=== PATIENT | male | born 1970 | race Caucasian/White ===

== ENCOUNTER 2019-03-14 20:54 | Emergency (ER) | payer OTHER ==
[2019-03-14] MEDS ORDERED: KETOROLAC 30 MG/ML INJ ONE (21:25)
[2019-03-14] MEDS ORDERED: HYDROCODONE/APAP 10/325 TAB ONE (21:25)
--- NOTE | 2019-03-14 21:46 | EDPHYS ---
Physician Documentation [facility] Name: Kevin Bronson Age: 48 yrs Sex: Male : 1970 Arrival Date: 03/14/2019 Time: 20:58 Bed 19 Private MD: ED Physician Lebron Perez HPI: 03/14 21:55 This 48 yrs old Male presents to ER via Ambulatory with complaints of Arm Injury. kb 21:55 The patient or guardian complains of decreased range of motion, injury, pain, that is kb acute, swelling, tenderness. The complaints affect the right upper arm. Context: The problem was sustained at home, resulted from lifting or pulling, a heavy object. Onset: The symptoms/episode began/occurred just prior to arrival. Treatment prior to arrival includes: no previous treatment. Modifying factors: The symptoms are alleviated by nothing. the symptoms are aggravated by movement. Associated signs and symptoms: Pertinent positives: decreased range of motion, pain, swelling. Severity of symptoms: At their worst the symptoms were moderate, in the emergency department the symptoms are unchanged. The patient has not recently seen a physician. Pt reports he was carrying a large rock and felt a pull and pain to right bicep. Reports pain, tenderness, swelling and decreased ROM . Historical: - Allergies: 21:22 No Known Allergies; ss - Home Meds: 21:22 Lisinopril Oral [Active]; unknown hypertensive medication [Active]; ss - PMHx: 21:22 Hypertension; ss - PSHx: 21:22 Cholecystectomy; knee repair; ss - Immunization history:: Adult Immunizations up to date. - Social history:: Smoking status: Patient/guardian denies using tobacco. - Ebola Screening: : Patient denies exposure to infectious person Patient denies travel to an Ebola-affected area in the 21 days before illness onset. ROS: 21:47 Constitutional: Negative for fever, chills, and weight loss, Cardiovascular: Negative kb for chest pain, palpitations, and edema, Respiratory: Negative for shortness of breath, cough, wheezing, and pleuritic chest pain, Abdomen/GI: Negative for abdominal pain, nausea, vomiting, diarrhea, and constipation. Exam: 21:53 Constitutional: This is a well developed, well nourished patient who is awake, alert, kb and in no acute distress. Head/Face: Normocephalic, atraumatic. Chest/axilla: Normal chest wall appearance and motion. Nontender with no deformity. No lesions are appreciated. Cardiovascular: Regular rate and rhythm with a normal S1 and S2. No gallops, murmurs, or rubs. Normal PMI, no JVD. No pulse deficits. Respiratory: Lungs have equal breath sounds bilaterally, clear to auscultation and percussion. No rales, rhonchi or wheezes noted. No increased work of breathing, no retractions or nasal flaring. Abdomen/GI: Soft, non-tender, with normal bowel sounds. No distension or tympany. No guarding or rebound. No evidence of tenderness throughout. Skin: Warm, dry with normal turgor. Normal color with no rashes, no lesions, and no evidence of cellulitis. Neuro: Awake and alert, GCS 15, oriented to person, place, time, and situation. Cranial nerves II-XII grossly intact. Motor strength 5/5 in all extremities. Sensory grossly intact. Cerebellar exam normal. Normal gait. 21:53 Musculoskeletal/extremity: Extremities: grossly normal except: noted in the right bicep: pain, swelling, tenderness, ROM: limited active range of motion, in the right upper arm, Circulation is intact in all extremities. Sensation intact. Vital Signs: 21:22 BP 154 / 100; Pulse 87; Resp 16; Temp 98.6; Pulse Ox 98% on R/A; Weight 104.33 kg; ss Height 5 ft. 6 in. (167.64 cm); Pain 5/10; 22:10 BP 149 / 97; Pulse 85; Resp 17 S; Pulse Ox 98% on R/A; cc3 21:22 Body Mass Index 37.12 (104.33 kg, 167.64 cm) ss MDM: 21:08 Patient medically screened. kb 21:54 Data reviewed: vital signs, nurses notes. Data interpreted: Pulse oximetry: on room air kb is 98 %. Interpretation: normal. Counseling: I had a detailed discussion with the patient and/or guardian regarding: the historical points, exam findings, and any diagnostic results supporting the discharge/admit diagnosis, radiology results, the need for outpatient follow up, a orthopedic surgeon, to return to the emergency department if symptoms worsen or persist or if there are any questions or concerns that arise at home. 03/14 21:48 Order name: Humerus Right XRAY kb 03/14 21:12 Order name: Sling; Complete Time: 21:33 kb Administered Medications: 21:25 Drug: [place] 10 mg-325 mg 1 tabs {Note: RASS 0.} Route: PO; cc3 22:00 Follow up: Response: No adverse reaction; Pain is decreased; RASS: Alert and Calm (0) cc3 21:30 Drug: TORadol 30 mg Route: IM; Site: left deltoid; cc3 22:00 Follow up: Response: No adverse reaction; Pain is decreased cc3 22:33 Drug: Flexeril 10 mg Route: PO; cc3 22:35 Follow up: Response: No adverse reaction cc3 Disposition: 03/15 02:24 Co-signature as Attending Physician, Lebron Perez MD. rn Disposition: 03/14/19 21:45 Discharged to Home. Impression: Strain of muscle, fascia and tendon of other parts of biceps, right arm. - Condition is Stable. - Discharge Instructions: Muscle Strain, [id number]. - Prescriptions for Tylenol- Codeine #3 300-30 mg Oral Tablet - take 2 tablets by ORAL route every 6 hours As needed; 20 tablet. Cyclobenzaprine 10 mg Oral Tablet - take 1 tablet by ORAL route every 8 hours As needed; 21 tablet. - Medication Reconciliation Form, Thank You Letter, Antibiotic Education, Prescription Opioid Use form. - Follow up: Emergency Department; When: As needed; Reason: Worsening of condition. Follow up: Private Physician; When: 2 - 3 days; Reason: Recheck today's complaints, Continuance of care, Re-evaluation by your physician. Signatures: Dispatcher [employer] [facility] Sada Anhtony, DIESEL DRAGLINE OPERATOR-C DIESEL DRAGLINE OPERATOR-Ckb Lebron Perez MD MD rn Smirch, Shelby, RN RN ss Cordel, Charlene cc3 Corrections: (The following items were deleted from the chart) 03/14 22:36 21:45 03/14/2019 21:45 Discharged to Home. Impression: Strain of muscle, fascia and cc3 tendon of other parts of biceps, right arm. Condition is Stable. Forms are Medication Reconciliation Form, Thank You Letter, Antibiotic Education, Prescription Opioid Use. Follow up: Emergency Department; When: As needed; Reason: Worsening of condition. Follow up: Private Physician; When: 2 - 3 days; Reason: Recheck today's complaints, Continuance of care, Re-evaluation by your physician. kb
--- NOTE | 2019-03-14 21:46 | ER ---
Nurse's Notes [facility] Name: Kevin Bronson Age: 48 yrs Sex: Male : 1970 Arrival Date: 03/14/2019 Time: 20:58 Bed 19 Private MD: Diagnosis: Strain of muscle, fascia and tendon of other parts of biceps, right arm Presentation: 03/14 21:18 Presenting complaint: Patient states: Patient reports R upper arm pain that began after ss throwing something and hearing a "Velcro ripping" sound. Transition of care: patient was not received from another setting of care. Onset of symptoms was March 14, 2019. Risk Assessment: Do you want to hurt yourself or someone else? Patient reports no desire to harm self or others. Initial Sepsis Screen: Does the patient meet any 2 criteria? No. Patient's initial sepsis screen is negative. Does the patient have a suspected source of infection? No. Patient's initial sepsis screen is negative. Care prior to arrival: None. 21:18 Method Of Arrival: Ambulatory ss 21:18 Acuity: AARON 4 ss Triage Assessment: 21:18 General: Appears in no apparent distress. uncomfortable, Behavior is calm, cooperative, cc3 appropriate for age. Pain: Complains of pain in right arm. Musculoskeletal: Circulation, motion, and sensation intact. Range of motion: limited in right arm. Injury Description: right arm injury. Historical: - Allergies: 21:22 No Known Allergies; ss - Home Meds: 21:22 Lisinopril Oral [Active]; unknown hypertensive medication [Active]; ss - PMHx: 21:22 Hypertension; ss - PSHx: 21:22 Cholecystectomy; knee repair; ss - Immunization history:: Adult Immunizations up to date. - Social history:: Smoking status: Patient/guardian denies using tobacco. - Ebola Screening: : Patient denies exposure to infectious person Patient denies travel to an Ebola-affected area in the 21 days before illness onset. Screenin:18 Abuse screen: Denies threats or abuse. Denies injuries from another. Nutritional cc3 screening: No deficits noted. Tuberculosis screening: No symptoms or risk factors identified. Fall Risk Ambulatory Aid- None/Bed Rest/Nurse Assist (0 pts). Gait- Normal/Bed Rest/Wheelchair (0 pts) Mental Status- Oriented to own ability (0 pts). Assessment: 21:18 General: Appears in no apparent distress. uncomfortable, Behavior is calm, cooperative, cc3 appropriate for age. Pain: Complains of pain in right arm. Neuro: Level of Consciousness is awake, alert, obeys commands, Oriented to person, place, time, situation, Appropriate for age. Cardiovascular: Denies chest pain, Capillary refill < 3 seconds Patient's skin is warm and dry. Respiratory: Airway is patent Respiratory effort is even, unlabored, Respiratory pattern is regular, symmetrical. GI: Abdomen is round. : No signs and/or symptoms were reported regarding the genitourinary system. EENT: No signs and/or symptoms were reported regarding the EENT system. Derm: Skin is intact, is healthy with good turgor, Skin is pink, warm \\T\\ dry. normal. Musculoskeletal: Circulation, motion, and sensation intact. Range of motion: limited in right arm. 22:30 Reassessment: Patient appears in no apparent distress at this time. Patient and/or cc3 family updated on plan of care and expected duration. Pain level reassessed. Patient is alert, oriented x 3, equal unlabored respirations, skin warm/dry/pink. WIND ENERGY PROJECT MANAGER Raj discharged the patient home with prescription given. No IV cannula in situ. Patient left ER vitally stable and ambulatory with right arm sling. No valuables left in the patient's room. Patient denies pain at this time. Patient states feeling better. Patient states symptoms have improved. Vital Signs: 21:22 BP 154 / 100; Pulse 87; Resp 16; Temp 98.6; Pulse Ox 98% on R/A; Weight 104.33 kg; ss Height 5 ft. 6 in. (167.64 cm); Pain 5/10; 22:10 BP 149 / 97; Pulse 85; Resp 17 S; Pulse Ox 98% on R/A; cc3 21:22 Body Mass Index 37.12 (104.33 kg, 167.64 cm) ED Course: 20:58 Patient arrived in ED. ag3 21:08 Sada [facility] F[facility]-C [facility]. kb 21:08 Lebron Perez MD is Attending Physician. kb 21:18 Tere Palma is Primary Nurse. cc3 21:18 Patient has correct armband on for positive identification. Bed in low position. Call cc3 light in reach. Side rails up X 1. Pulse ox on. NIBP on. 21:20 Triage completed. ss 21:22 Arm band placed on right wrist. ss 21:32 Sling applied to right arm. jp3 22:30 No provider procedures requiring assistance completed. Patient did not have IV access cc3 during this emergency room visit. 22:35 Humerus Right XRAY In Process Unspecified. EDMS Administered Medications: 21:25 Drug: [place] 10 mg-325 mg 1 tabs {Note: RASS 0.} Route: PO; cc3 22:00 Follow up: Response: No adverse reaction; Pain is decreased; RASS: Alert and Calm (0) cc3 21:30 Drug: TORadol 30 mg Route: IM; Site: left deltoid; cc3 22:00 Follow up: Response: No adverse reaction; Pain is decreased cc3 22:33 Drug: Flexeril 10 mg Route: PO; cc3 22:35 Follow up: Response: No adverse reaction cc3 Outcome: 21:45 Discharge ordered by . kb 22:30 Discharged to home ambulatory, with family. cc3 22:30 Condition: stable 22:30 Discharge instructions given to patient, Instructed on discharge instructions, follow up and referral plans. medication usage, Demonstrated understanding of instructions, follow-up care, medications, Prescriptions given X 2. 22:36 Patient left the ED. cc3 Signatures: Dispatcher [employer] ED[facility] Sada Anthony, Samaria Norris RN RN Eligio Smiley jp3 Tere Palma cc3 Oma Dorantes 3
[2019-03-14] MEDS ORDERED: CYCLOBENZAPRINE 10 MG TAB ONE (22:33)
--- NOTE | 2019-03-14 22:47 | RAD REPORT ---
EXAM DESCRIPTION: RAD - Humerus Right - 03/14/2019 10:35 pm CLINICAL HISTORY: Right arm pain FINDINGS: No fracture is seen involving the humerus. No bony lesion There may be an old distal right clavicular fracture which is incompletely evaluated on this exam
== END 2019-03-14 22:36 | disposition home or self-care (01) ==
LOC: ER 20:54
DX: S46.211A Strain of muscle, fascia and tendon of other parts of biceps, right arm, initial encounter (principal); X50.0XXA Overexertion from strenuous movement or load, initial encounter; I10 Essential (primary) hypertension
CPT/HCPCS: 96372; 99284

== ENCOUNTER 2020-04-09 15:29 | Emergency (ER) | payer BC, OTHER ==
--- OUTSIDE RECORDS SUMMARY | 2020-04-09 15:31 | XMS REPORT | Continuity of Care Document ---
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) Hypertensive Active 08/08/19 Problem 03/29/2019 [facility] disorder, 04 systemic arterial (disorder) Rupture of Active Problem 03/29/2019 [facility] tendon of biceps (disorder) Medications Medication Details Route Status Patient Ordering Order Source Instructions Provider Date Ofirmev Notes: Max 4gm Inactive 03/27/ [facility] acetaminophen 2019 in 24 hours Promethazine 12.5 mg = 0.5 Inactive 03/27/ [facility] mL, Injection, 2019 IM, Once PRN for vomiting, first dose 03/27/19 16:04:00 CDT Ondansetron 4 mg = 2 mL, Inactive 03/27/ [facility] Injection, IV 2019 Push, q15min PRN for nausea, order duration: 2 doses, first dose 03/27/19 16:04:00 CDT, stop date Limited # of times Diphenhydramine 25 mg = 0.5 Inactive 03/27/ [facility] mL, Injection, 2018 IV Push, Once PRN for itching, first dose 03/27/19 16:04:00 CDT Bupivacaine 0.25% 300 300 mL, Nerve Inactive / [facility] mL pump 300 mL Block, 5 2019 mL/hr, start date 03/27/19 16:04:00 CDT Demerol HCl 12.5 mg = 0.5 Inactive 03/27/ [facility] mL, Injection, 2018 IV Push, Once PRN for shivers, first dose 03/27/19 16:04:00 CDT Dilaudid 0.5 mg = 0.5 Inactive 03/27/ [facility] mL, Injection, 2019 IV Push, q10min PRN for pain severe (7-10), first dose 03/27/19 16:04:00 CDT Albuterol 0.83 MG/ML 2.5 mg = 3 mL, Inactive [facility] Inhalant Solution Soln, NEB, 2019 Once PRN for wheezing, first dose 03/27/19 16:04:00 CDT Morphine 2 mg = 0.2 mL, Inactive 03/27/ [facility] Injection, IV 2019 Push, q5min PRN for pain, first dose 03/27/19 16:04:00 CDT LR 1,000 mL 1,000 mL, IV, Inactive 03/27/ [facility] 75 mL/hr, 2019 start date 03/27/19 16:04:00 CDT Saline Lock Flush 10 mL, Soln, Inactive [facility] IV Push, As 2019 Indicated PRN for flush, first dose 03/27/19 16:04:00 CDT Misc Medication 500 mL, Inactive [facility] Soln-IV, IV, 2019 Once, first dose 03/27/19 16:00:00 CDT, stop date 03/27/19 16:00:00 CDT ePHEDrine 10 mg = 0.2 Inactive [facility] mL, Injection, 2019 IV, Once, first dose 03/27/19 15:31:00 CDT, stop date 03/27/19 15:31:00 CDT Misc Medication 1,000 mL, Inactive [facility] Soln-IV, IV, 2019 Once, first dose 03/27/19 15:10:00 CDT, stop date 03/27/19 15:10:00 CDT ketorolac 30 mg = 1 mL, Inactive 03/27/ [facility] Injection, IV, 2018 Once, first dose 03/27/19 15:10:00 CDT, stop date 03/27/19 15:10:00 CDT fentaNYL 50 mcg = 1 mL, Inactive 03/27/ [facility] Injection, IV, 2019 Once, first dose 03/27/19 15:05:00 CDT, stop date 03/27/19 15:05:00 CDT ePHEDrine 10 mg = 0.2 Inactive 03/27/ [facility] mL, Injection, 2019 IV, Once, first dose 03/27/19 15:00:00 CDT, stop date 03/27/19 15:00:00 CDT fentaNYL 50 mcg = 1 mL, Inactive [facility] Injection, IV, 2019 Once, first dose 03/27/19 14:42:00 CDT, stop date 03/27/19 14:42:00 CDT fentaNYL 100 mcg = 2 Inactive 03/27/ [facility] mL, Injection, 2019 IV, Once, first dose 03/27/19 14:15:00 CDT, stop date 03/27/19 14:15:00 CDT ceFAZolin 2 gm, Inactive [facility] Powder-Inj, 2019 IV, Once, first dose 03/27/19 14:07:00 CDT, stop date 03/27/19 14:07:00 CDT dexamethasone 8 mg = 2 mL, Inactive [facility] Injection, IV, 2019 Once, first dose 03/27/19 14:06:00 CDT, stop date 03/27/19 14:06:00 CDT ondansetron 4 mg = 2 mL, Inactive [facility] Injection, IV, 2019 Once, first dose 03/27/19 14:06:00 CDT, stop date 03/27/19 14:06:00 CDT midazolam 2 mg = 2 mL, Inactive [facility] Injection, IV, 2019 Once, first dose 03/27/19 14:00:00 CDT, stop date 03/27/19 14:00:00 CDT fentaNYL 100 mcg = 2 Inactive [facility] mL, Injection, 2019 IV, Once, first dose 03/27/19 14:00:00 CDT, stop date 03/27/19 14:00:00 CDT lidocaine 80 mg = 4 mL, Inactive [facility] Injection, IV, 2019 Once, first dose 03/27/19 14:00:00 CDT, stop date 03/27/19 14:00:00 CDT propofol 150 mg = 15 Inactive [facility] mL, Emulsion, 2019 IV, Once, first dose 03/27/19 14:00:00 CDT, stop date 03/27/19 14:00:00 CDT Cefazolin 2 gm, IV Inactive [facility] Piggyback, 2019 Once, infuse over 30 minutes, first dose 03/27/19 10:00:00 CDT, stop date 03/27/19 10:00:00 CDT, patient weight 50-120 kg, Prophylaxis Lidocaine 2% 0.2 mL 0.2 mL, Inactive [facility] IV Start [[facility]] Injection, 2019 Subcutaneous, Once PRN for other (see comment), first dose 03/27/19 9:34:00 CDT LR 1,000 mL 1,000 mL, IV, Inactive [facility] 30 mL/hr, 2019 start date 03/27/19 9:34:00 CDT cyclobenzaprine Oral, BID, PRN Active [facility] muscle pain, 0 2019 Refill(s) Hydrochlorothiazide 1 tabs, Oral, Active [facility] 25 MG / Losartan Daily, 0 2019 Potassium 100 MG Oral Refill(s), HTN Tablet amLODIPine 10 mg oral 10 mg = 1 Active [facility] tablet tabs, Oral, 2019 Daily, 0 Refill(s), HTN Allergies, Adverse Reactions, Alerts No Known Medication Allergies Immunizations No Data Provided for This Section Results No Data Provided for This Section Pathology Reports No Data Provided for This Section Diagnostic Reports No Data Provided for This Section Consultation Notes No Data Provided for This Section Discharge Summaries No Data Provided for This Section History and Physicals No Data Provided for This Section Vital Signs Vital Sign Value Date Comments Source Respitory Rate 14 03/27/2019 [facility] Systolic (mm Hg) 104 03/27/2019 [facility] Diastolic (mm Hg) 62 03/27/2019 [facility] Peripheral Pulse Rate 81 03/27/2019 [facility] Respitory Rate 14 03/27/2019 [facility] Systolic (mm Hg) 104 03/27/2019 [facility] Diastolic (mm Hg) 61 03/27/2019 [facility] Heart Rate 95 03/27/2019 [facility] Heart Rate 94 03/27/2019 [facility] Respitory Rate 12 03/27/2019 [facility] Systolic (mm Hg) 96 03/27/2019 [facility] Diastolic (mm Hg) 56 03/27/2019 [facility] Heart Rate 95 03/27/2019 [facility] Temperature Oral (F) 37.0 [place] 03/27/2019 [facility] Weight Measured 104 03/27/2019 [facility] Height 167.64 cm 03/27/2019 [facility] Peripheral Pulse Rate 83 03/27/2019 [facility] Temperature Oral (F) 37 [place] 03/27/2019 [facility] Weight Measured 104.32 03/23/2019 [facility] Peripheral Pulse Rate 85 03/23/2019 [facility] Height 167.64 cm 03/23/2019 [facility] Encounters Location Location Encounter Encounter Reason Attending ADM DC Stat us Source Details Type Number For Provider Date Date Visit [facility] Outpatient [id number] Jaden 03/27 03/27 Active [facility] Outpatient [id number] Jaden 03/27 03/27 [facility] Procedures Procedure Code Date Perfomer Comments Source REINSERTION RUPTURED 03/27/2019 auto-populated [facility] BICEPS/TRICEPS from documented TENDON-DISTAL W/ OR surgical case W/O GRAFT [id number] (Right)<sup>1</sup&gt ; plantar fasciotomy 08/08/2015 [facility] Arthroscopy of knee [id number] 08/08/2013 [facility] Cholecystectomy [id number] 08/08/2007 [facility] prostate every 6 months [facility] BX<sup>2</sup> Assessment and Plan No Data Provided for This Section Plan of Care No Data Provided for This Section Social History Social History Date Source Social History TypeResponse 03/23/2019 [facility] Smoking Status Never (less than 100 in lifetime); Never entered on: 03/23/19 Family History No Data Provided for This Section Advance Directives No Data Provided for This Section Functional Status No Data Provided for This Section
--- OUTSIDE RECORDS SUMMARY | 2020-04-09 15:31 | XMS REPORT | Continuity of Care Document ---
:1970 Author Organization [facility] t Address [address] [place] [address] Care Team Providers Name Role Phone ROBYN MARQUIS M.D. Attending Clinician Unavailable Robyn Marquis Attending Clinician Robyn Marquis Admitting Clinician Problems Condition Condition Condition Status Onset Resolution Last Treating Co mments Source Name Details Category Date Date Treatment Clinician Date Carcinoma Problem Active 2019-03-29 Me moria of 08-08 04:01:26 l prostate 00:00: Edwin (disorder) Carcinoma 00 of prostate (disorder) Active 08/08/2015 Problem 03/29/2019 active surveillan ce [facility] Hypertensi Problem Active 2003-2019-03-29 M emoria ve 08-08 04:01:26 l disorder, 00:00: Edwin systemic Hypertensi 00 arterial ve (disorder) disorder, systemic arterial (disorder) Active 08/08/2003 Problem 03/29/2019 [facility] Hyperlipid Hyperlipid Diagnosis [facility] Low Low Diagnosis Active [facility] testostero testostero [facility] - ne in male ne in male Me [facility]ia [facility] Benign Benign Problem Active [facility] - HTN HTN [facility] Depression Depression Diagnosis [facility] Prostate Prostate Diagnosis Active [facility] cancer [facility] Decreased Decreased Diagnosis Active [facility] libido libido [facility] Fatigue, Fatigue, Diagnosis Active [facility] unspecifie unspecifie [facility] - d type d type [facility] Gastro-eso Gastro-eso Diagnosis Active [facility] - reflux reflux Memoria disease disease l without without Outpati esophagiti esophagiti en t s s Clinics Hypersomni Hypersomni Diagnosis Active [facility] Rupture of Rupture of Problem Active [facility] distal distal ity of biceps biceps [place] tendon, tendon, Physici right, right, ans initial initial encounter encounter Right Right Problem Active [facility] elbow pain elbow pain it y of [place] [facility] ans Rupture of Problem Active 2019-03-29 M emoria tendon of 04:01:26 l biceps Rupture Edwin (disorder) of tendon of biceps (disorder) Active Problem 03/29/2019 [facility] Allergies, Adverse Reactions, Alerts This patient has no known allergies or adverse reactions. Social History Smoking Status Start Date Stop Date Source Social History [facility] Medications Ordered Filled Start Stop Current Ordering Indication Dosage Frequency Signature Comments Components Source Medication Medication Date Date Medication? Clinician (SIG) Name Name [facility] No Notes: Max Nico mike 8-20 4gm l 23:00: acetaminop Edwin 00 hen in 24 hours Promethazin 2018- No 12.5 mg = M emoria e 8-20 0.5 mL, l 21:04: Injection, Edwin 00 IM, Once PRN for vomiting, first dose 03/27/19 16:04:00 CDT Ondansetron 2018- No 4 mg = 2 Me moria 8-20 mL, l 21:04: Injection, Edwin 00 IV Push, q15min PRN for nausea, order duration: 2 doses, first dose 03/27/19 16:04:00 CDT, stop date Limited # of times Diphenhydra 2018-0 No 25 mg = Mem oria mine 8-20 0.5 mL, l 21:04: Injection, Edwin 00 IV Push, Once PRN for itching, first dose 03/27/19 16:04:00 CDT Bupivacaine 2018-0 No 300 mL, Mem oria 0.25% 300 8-20 Nerve l mL pump 300 21:04: Block, 5 He rmann mL 00 mL/hr, start date 03/27/19 16:04:00 CDT Demerol HCl 2018- No 12.5 mg = M emoria 8-20 0.5 mL, l 21:04: Injection, Argenta 00 IV Push, Once PRN for shivers, first dose 03/27/19 16:04:00 CDT Dilaudid 2019-0 No 0.5 mg = Memor ia 8-20 0.5 mL, l 21:04: Injection, IV Push, q10min PRN for pain severe (7-10), first dose 03/27/19 16:04:00 CDT Albuterol 2018-0 No 2.5 mg = 3 Me moria 0.83 MG/ML 8-20 mL, Soln, l Inhalant 21:04: NEB, Once Herm PRN for wheezing, first dose 03/27/19 16:04:00 CDT Morphine 2019-0 No 2 mg = 0.2 Mem oria 8-20 mL, l 21:04: Injection, IV Push, q5min PRN for pain, first dose 03/27/19 16:04:00 CDT LR 1,000 mL 2019-0 No 1,000 mL, M emoria 8-20 IV, 75 l 21:04: mL/hr, start date 03/27/19 16:04:00 CDT Saline Lock 2019-0 No 10 mL, Nico mike Flush 8-20 Soln, IV l 21:04: Push, As Indicated PRN for flush, first dose 03/27/19 16:04:00 CDT Misc 2019-0 No 500 mL, Memoria Medication 8-20 Soln-IV, l 21:00: IV, Once, first dose 03/27/19 16:00:00 CDT, stop date 03/27/19 16:00:00 CDT ePHEDrine 2018-0 No 10 mg = Memor ia 8-20 0.2 mL, l 20:31: Injection, IV, Once, first dose 03/27/19 15:31:00 CDT, stop date 03/27/19 15:31:00 CDT Misc 2018-0 No 1,000 mL, Memoria Medication 8-20 Soln-IV, l 20:10: IV, Once, first dose 03/27/19 15:10:00 CDT, stop date 03/27/19 15:10:00 CDT ketorolac 2019-0 No 30 mg = 1 Mem oria 8-20 mL, l 20:10: Injection, Edwin 00 IV, Once, first dose 03/27/19 15:10:00 CDT, stop date 03/27/19 15:10:00 CDT fentaNYL 2019-0 No 50 mcg = 1 Mem oria 8-20 mL, l 20:05: Injection, Argenta 00 IV, Once, first dose 03/27/19 15:05:00 CDT, stop date 03/27/19 15:05:00 CDT ePHEDrine 2019-0 No 10 mg = Memor ia 8-20 0.2 mL, l 20:00: Injection, Argenta 00 IV, Once, first dose 03/27/19 15:00:00 CDT, stop date 03/27/19 15:00:00 CDT fentaNYL 2019-0 No 50 mcg = 1 Mem oria 8-20 mL, l 19:42: Injection, Argenta 00 IV, Once, first dose 03/27/19 14:42:00 CDT, stop date 03/27/19 14:42:00 CDT fentaNYL 2019-0 No 100 mcg = Nico mike 8-20 2 mL, l 19:15: Injection, Edwin 00 IV, Once, first dose 03/27/19 14:15:00 CDT, stop date 03/27/19 14:15:00 CDT ceFAZolin 2019-0 No 2 gm, Memoria 8-20 Powder-Inj l 19:07: , IV, Argenta 00 Once, first dose 03/27/19 14:07:00 CDT, stop date 03/27/19 14:07:00 CDT dexamethaso 2019-0 No 8 mg = 2 Me moria ne 8-20 mL, l 19:06: Injection, Edwin 00 IV, Once, first dose 03/27/19 14:06:00 CDT, stop date 03/27/19 14:06:00 CDT ondansetron 2019-0 No 4 mg = 2 Me moria 8-20 mL, l 19:06: Injection, Argenta 00 IV, Once, first dose 03/27/19 14:06:00 CDT, stop date 03/27/19 14:06:00 CDT midazolam 2019-0 No 2 mg = 2 Nico mike 8-20 mL, l 19:00: Injection, Edwin 00 IV, Once, first dose 03/27/19 14:00:00 CDT, stop date 03/27/19 14:00:00 CDT fentaNYL 2019-0 No 100 mcg = Nico mike 8-20 2 mL, l 19:00: Injection, Argenta 00 IV, Once, first dose 03/27/19 14:00:00 CDT, stop date 03/27/19 14:00:00 CDT lidocaine 2019-0 No 80 mg = 4 Mem oria 8-20 mL, l 19:00: Injection, Edwin 00 IV, Once, first dose 03/27/19 14:00:00 CDT, stop date 03/27/19 14:00:00 CDT propofol 2019-0 No 150 mg = Memor ia 8-20 15 mL, l 19:00: Emulsion, Edwin 00 IV, Once, first dose 03/27/19 14:00:00 CDT, stop date 03/27/19 14:00:00 CDT Cefazolin 2019-0 No 2 gm, IV Nico mike 8-20 Piggyback, l 15:00: Once, infuse over 30 minutes, first dose 03/27/19 10:00:00 CDT, stop date 03/27/19 10:00:00 CDT, patient weight 50-120 kg, Prophylaxi s Lidocaine 2019-0 No 0.2 mL, Memor ia 2% 0.2 mL 8-20 Injection, l IV Start 14:34: Subcutaneo Her [facility] 00 us, Once PRN for other (see comment), first dose 03/27/19 9:34:00 CDT LR 1,000 mL 2019-0 No 1,000 mL, M emoria 8-20 IV, 30 l 14:34: mL/hr, start date 03/27/19 9:34:00 CDT cyclobenzap 2019-0 Yes Oral, BID, Memoria rine 8-16 PRN muscle l 16:35: pain, 0 Argenta 00 Refill(s) Hydrochloro 2019-0 Yes 1 tabs, Mem oria thiazide 25 8-16 Oral, l MG / 16:34: Daily, 0 Edwin Losartan 00 Refill(s), Potassium HTN 100 MG Oral Tablet amLODIPine Yes 10 mg = 1 Me moria 10 mg oral 8-16 tabs, l tablet 16:34: Oral, Argenta 00 Daily, 0 Refill(s), HTN Acetaminoph Acetaminoph Yes ROBYN TAKE 1 TO [facility] en-Codeine en-Codeine 809 MARQUIS M.D. 2 TABLETS ity of #3 300-30 #3 300-30 00:00: EVERY 5 TO [place] MG Oral MG Oral 00 6 HOURS Phy sici Tablet Tablet NEEDED FOR ans PAIN. Ezetimibe Ezetimibe Yes Dat [address] [facility] Simvastatin Simvastatin Yes Dat [address] [facility] evening [facility] Lipitor Lipitor Yes Dat [address] [facility] Zestoretic Zestoretic Yes Dat [address] [facility] Vital Signs Vital Name Observation Time Observation Value Comments Source Respitory Rate 2019-03-27 23:01:00 Memori al Edwin Systolic (mm Hg) 2019-03-27 23:01:00 Nico rial Edwin Diastolic (mm Hg) 2019-03-27 23:01:00 Mem orial Argent[place] Respitory Rate 2019-03-27 22:40:00 Memori al Edwin Systolic (mm Hg) 2019-03-27 22:40:00 Nico rial [place] Diastolic (mm Hg) 2019-03-27 22:40:00 Mem orial [place] Heart Rate 2019-03-27 22:40:00 [facility] [place] Heart Rate 2019-03-27 22:30:00 [facility] [place] Respitory Rate 2019-03-27 22:30:00 Memori al [place] Systolic (mm Hg) 2019-03-27 22:30:00 Nico rial Edwin Diastolic (mm Hg) 2019-03-27 22:30:00 Mem orial Edwin Heart Rate 2019-03-27 22:20:00 [facility] [place] Temperature Oral (F) 2019-03-27 20:50:00 37.0 [facility] Height 2019-03-27 14:43:00 167.64 cm [facility] Temperature Oral (F) 2019-03-27 14:43:00 37 Armida [facility] Height 2019-03-23 16:33:00 167.64 cm [facility] BP Systolic 2019-03-16 08:04:00 157 mm[Hg] [facility] Physician s BP Diastolic 2019-03-16 08:04:00 94 mm[Hg] [facility] Physician s Height 2019-03-16 08:04:00 66 [in_us] [facility] [place] [facility] Weight 2019-03-16 08:04:00 230 [lb_av] [facility] Physician s Body Mass Index 2019-03-16 08:04:00 37.12 kg/m2 [facility] Physician s Heart Rate 2019-03-16 08:04:00 76 /min [facility] Physician s Procedures Procedure Date / Time Performing Clinician Source Performed Post Op Promis 29 Survey 2019-04-13 00:00:00 [facility] REINSERTION RUPTURED 2019-03-27 19:17:00 Rebecca Pineda BICEPS/TRICEPS TENDON-DISTAL W/ OR W/O GRAFT [id number] (Right)<sup>1</sup> [UTP] Ortho - Surgery 2019-03-16 00:00:00 [facility] Scheduling Physicians plantar fasciotomy 2015-08-08 00:00:00 [facility] Cholecystectomy 2007-08-08 00:00:00 [facility] Her alcaraz History of [facility]adder [facility] surgery Physicians History of Knee [facility] arthroscopy Physicians History of Elbow Surgery [facility] Physicians prostate BX<sup>2</sup> [facility] Plan of Care Planned Activity Planned Date Details Comments Source Diagnostic Test 2019-03-16 [UTP] Ortho - [facility] Pending 00:00:00 Surgery Scheduling Physician s [code = [UTP] Ortho - Surgery Scheduling] Encounters Start End Encounter Admission Attending Care Care Encounter Source Date/Time Date/Time Type Type Clinicians Facility Department ID 2019-07-24 2019-07-24 Appointmen RONNI MARQUIS Orthopedics [id number] [facility] 14:00:00 14:00:00 t; ROBYN MARQUIS, - Yvonne June M.D. [address]D. Physic ans 2019-05-09 2019-05-09 Appointmen [facility] Orthopedics [id number] [facility] 13:45:00 13:45:00 t; ROBYN MARQUIS, - [facility] [place] 1 aKtie Tellez Physic ans 2019-04-04 2019-04-04 Appointmen [facility] Orthopedics [id number] Univers 15:00:00 15:00:00 t; ROBYN MARQUIS, - [place] [facility] [place] [address] [facility] 2019-03-27 2019-03-27 Outpatient Kandis [id number] 09:19:02 18:30:00 Robyn Mak 2019-03-27 [facility] Orthopedics [id number] [facility] 16:00:00 16:00:00 t; ROBYN MARQUIS, - [facility] [place] [address] [facility] 2019-03-16 2019-03-[id number] Univers 08:00:00 08:00:00 t; ROBYN MARQUIS, - [place] [facility] [place] [address] [facility] 2017-11-28 2017-11-28 [facility] [id number] 08:15:00 08:15:00 t Z2 [facility] Outpati ent Clinics 2017-11-03 2017-11-03 [facility] [id number] 16:07:00 16:07:00 t Z2 [facility] Medicine Outpati ent Clinics 2017-10-26 2017-10-26 [facility] [id number] 08:30:00 08:30:00 t Z2 [facility] Medicine Outpati ent Clinics Results This patient has no known results.
[2020-04-09 17:14] LABS: Absolute Lymphocytes (CBC) 1.2 K/uL (0.7-4.9); Basophils % 0.5 % (0-1.3); Hematocrit 45.6 % (39.6-49.0); Lymphocytes % 10.2 % (15.3-44.8); MPV 7.3 fL (7.6-11.3); RBC Red Blood Cell Count 5.06 M/uL (4.33-5.43)
[2020-04-09] MEDS ORDERED: FENTANYL CITR 100 MCG/2 ML ONE (17:18)
[2020-04-09] MEDS ORDERED: NA CHLORIDE 0.9% 500 ML ONE (17:18)
[2020-04-09] MEDS ORDERED: ONDANSETRON 4 MG/2 ML VIAL ONE (17:18)
--- NOTE | 2020-04-09 17:26 | RAD REPORT ---
EXAM DESCRIPTION: CT - Stone Protocol - 04/09/2020 5:12 pm CLINICAL HISTORY: Abdominal pain. COMPARISON: None. TECHNIQUE: Computed axial tomography of the abdomen pelvis was obtained without oral or IV contrast. Lack of IV and oral contrast limits evaluation of solid organs, bowel, and vessels. Coronal reformat eusebia images were obtained and reviewed. All CT scans are performed using dose optimization technique as appropriate and may include automated exposure control or mA/KV adjustment according to patient size. FINDINGS: 1 millimeter right renal calculus. Mild right hydronephrosis. 4.7 centimeter low-density m ass nonspecific without IV contrast but probably cyst. A left renal calculus is not seen. A ureteral calculus is not visualized. A 1 millimeter calculus is present within the posterior bladder to the right of midline. Fatty liver Cholecystectomy. Small bilateral inguinal hernias contain fat. Small umbilical hernia Spleen, pancreas and adrenals appear grossly normal There is no evidence of diverticulitis. The appendix appears normal IMPRESSION: 1 millimeter calculus within the bladder probably has recently passed from the right ure ter. Mild right hydronephrosis
[2020-04-09 17:34] LABS: ALT/SGPT 38 U/L (12-78); AST/SGOT 28 U/L (15-37); Alkaline Phosphatase 92 U/L (45-117); BUN Blood Urea Nitrogen 20 mg/dL (7-18); Bicarbonate 26 mmol/L (21-32); Bilirubin Direct < 0.1 mg/dL (0-0.2); Bilirubin Total 0.4 mg/dL (0.2-1.0); Glucose Level 117 mg/dL (74-106); Lipase 52 U/L (73-393); Protein, Total 7.9 g/dL (6.4-8.2); Sodium Level 142 mmol/L (136-145)
[2020-04-09] MEDS ORDERED: KETOROLAC 30 MG/ML INJ ONE (17:58)
--- NOTE | 2020-04-09 18:27 | ER ---
Nurse's Notes [facility] Name: Keivn Bronson Age: 49 yrs Sex: Male : 1970 Arrival Date: 04/09/2020 Time: 15:30 Bed 2 Private MD: Diagnosis: Right Renal Calculus (1 mm) w/ mild bydronephrosis Presentation: 04/09 15:47 Chief complaint: Patient states: Right flank pain for 2 hours with N/V. Unable to ll1 urinate at this time. Coronavirus screen: Client denies travel out of the [place] in the last 14 days. At this time, the client does not indicate any symptoms associated with coronavirus-19. Ebola Screen: Patient denies travel to an Ebola-affected area in the 21 days before illness onset. Initial Sepsis Screen: Does the patient meet any 2 criteria? No. Patient's initial sepsis screen is negative. Risk Assessment: Do you want to hurt yourself or someone else? Patient reports no desire to harm self or others. Onset of symptoms was April 09, 2020. 15:47 Method Of Arrival: Ambulatory ll1 15:47 Acuity: AARON 3 ll1 17:27 Initial Sepsis Screen: Does the patient have a suspected source of infection? No. sv Patient's initial sepsis screen is negative. Historical: - Allergies: 15:49 No Known Allergies; ll1 - PMHx: 15:49 Hypertension; ll1 - PSHx: 15:49 Cholecystectomy; ll1 - Immunization history:: Adult Immunizations up to date. - Social history:: Smoking status: Patient denies any tobacco usage or history of. Patient/guardian denies using alcohol, street drugs. Screenin:56 Abuse screen: Denies threats or abuse. Denies injuries from another. Nutritional sv screening: No deficits noted. Tuberculosis screening: No symptoms or risk factors identified. Fall Risk None identified. Assessment: 17:00 General: Appears in no apparent distress. uncomfortable, obese, well developed, sv Behavior is cooperative, appropriate for age, restless. Pain: Complains of pain in right mid back Pain currently is 10 out of 10 on a pain scale. Neuro: Level of Consciousness is awake, alert, obeys commands, Oriented to person, place, time, situation, Moves all extremities. Full function Gait is steady. Respiratory: Respiratory effort is even, unlabored, Respiratory pattern is regular, symmetrical. : Reports inability to void. Derm: Skin is pink, warm \T\ dry. 17:50 Reassessment: Patient appears in no apparent distress at this time. Patient and/or sv family updated on plan of care and expected duration. Pain level reassessed. Patient is alert, oriented x 3, equal unlabored respirations, skin warm/dry/pink. Patient states symptoms have improved. 18:44 Reassessment: Patient appears in no apparent distress at this time. Patient and/or sv family updated on plan of care and expected duration. Pain level reassessed. Patient is alert, oriented x 3, equal unlabored respirations, skin warm/dry/pink. Patient denies pain at this time. Patient states feeling better. Patient states symptoms have improved. Vital Signs: 15:47 BP 159 / 101; Pulse 82; Resp 20; Temp 98.1; Pulse Ox 99% ; Pain 10/10; ll1 17:27 BP 163 / 97; Pulse 94; Resp 22; Pulse Ox 97% ; sv 17:53 Pain 6/10; sv 18:32 BP 133 / 96; Pulse 92; Resp 18; Pulse Ox 96% ; sv ED Course: 15:30 Patient arrived in ED. ds1 15:48 Triage completed. ll1 15:50 Arm band placed on. ll1 16:11 Jaya Moeller MD is Attending Physician. kdr 16:56 Prisca Hawley, BETY is Primary Nurse. sv 16:56 Patient has correct armband on for positive identification. Bed in low position. Call sv light in reach. Door closed. Head of bed elevated. 17:00 Inserted saline lock: 22 gauge in left hand, using aseptic technique. Blood collected. sv Flushed left hand with 5 ml normal saline. 17:11 CT Stone Protocol In Process Unspecified. EDMS 18:44 No provider procedures requiring assistance completed. IV discontinued, intact, sv bleeding controlled, No redness/swelling at site. Pressure dressing applied. Administered Medications: 17:19 Drug: fentaNYL (PF) 50 mcg {Note: rass3.} Route: IVP; Site: left hand; sv 17:53 Follow up: Pain 6/10 Adult; Response: No adverse reaction; Marked relief of symptoms; sv Pain is decreased; RASS: Restless (+1) 17:19 Drug: Zofran (Ondansetron) 4 mg Route: IVP; Site: left hand; sv 17:53 Follow up: Response: No adverse reaction sv 17:19 Drug: NS 0.9% 500 ml Route: IV; Rate: bolus; Site: left hand; sv 18:46 Follow up: Response: No adverse reaction; IV Status: Completed infusion; IV Intake: sv 500ml 17:50 Drug: TORadol - Ketorolac 15 mg Route: IVP; Site: left hand; sv 18:46 Follow up: Response: No adverse reaction sv Intake: 18:46 IV: 500ml; Total: 500ml. sv Outcome: 18:27 Discharge ordered by . kdr 18:44 Discharged to home ambulatory. sv 18:44 Condition: stable 18:44 Discharge instructions given to patient, Instructed on discharge instructions, follow up and referral plans. no drinking with medication, no driving heavy equipment, medication usage, increase oral fluids Demonstrated understanding of instructions, follow-up care, medications, Prescriptions given X 4. 18:45 Patient left the ED. sv Signatures: Dispatcher [employer] Prisca Alcaraz, RN RN sv Jaya Moeller MD MD kdr Sanford, Maryse ds1 Daniela Mueller RN RN ll1 Corrections: (The following items were deleted from the chart) 16:26 15:48 Arm band placed on Patient placed in an exam room, on a stretcher, ll1 ll1
--- NOTE | 2020-04-09 18:27 | EDPHYS ---
Physician Documentation [facility] Name: Kevin Bronson Age: 49 yrs Sex: Male : 1970 Arrival Date: 04/09/2020 Time: 15:30 Bed 2 Private MD: ED Physician Jaya Moeller HPI: 04/09 17:00 This 49 yrs old Male presents to ER via Ambulatory with complaints of Back kdr Pain. 17:00 The patient presents with pain that is acute. The symptoms are located in the low back, kdr Right CVA. Onset: The symptoms/episode began/occurred suddenly, 2 hour(s) ago. To RLQ and abdomen. The problem was sustained from unknown cause. Modifying factors: The patient symptoms are alleviated by nothing, the patient symptoms are aggravated by any movement. Severity of symptoms: At their worst the symptoms were severe, incapacitating, in the emergency department the symptoms are unchanged. The patient has not experienced similar symptoms in the past. The patient has not recently seen a physician. The patient was using a push mower when he started to have pain.. Historical: - Allergies: 15:49 No Known Allergies; ll1 - PMHx: 15:49 Hypertension; ll1 - PSHx: 15:49 Cholecystectomy; ll1 - Immunization history:: Adult Immunizations up to date. - Social history:: Smoking status: Patient denies any tobacco usage or history of. Patient/guardian denies using alcohol, street drugs. ROS: 17:00 Constitutional: Negative for fever, chills, and weight loss, Eyes: Negative for injury, kdr pain, redness, and discharge, ENT: Negative for injury, pain, and discharge, Neck: Negative for injury, pain, and swelling, Cardiovascular: Negative for chest pain, palpitations, and edema, Respiratory: Negative for shortness of breath, cough, wheezing, and pleuritic chest pain, : Negative for injury, bleeding, discharge, and swelling, MS/Extremity: Negative for injury and deformity, Skin: Negative for injury, rash, and discoloration, Neuro: Negative for headache, weakness, numbness, tingling, and seizure activity. Psych: Negative for depression, anxiety, suicide ideation, homicidal ideation, and hallucinations, Allergy/Immunology: Negative for hives, rash, and allergies, Endocrine: Negative for neck swelling, polydipsia, polyuria, polyphagia, and marked weight changes, Hematologic/Lymphatic: Negative for swollen nodes, abnormal bleeding, and unusual bruising. 17:00 Abdomen/GI: Positive for abdominal pain, nausea and vomiting, Negative for constipation, abdominal cramps, abdominal distension, black/tarry stool, rectal pain, rectal bleeding, bowel incontinence. 17:00 Back: Positive for pain at rest, of the right mid back. 17:00 : Positive for urinary symptoms, Diminished urination. Exam: 17:04 Constitutional: This is a well developed, well nourished patient who is awake, alert, kdr and in moderate distress. Head/Face: Normocephalic, atraumatic. Eyes: Pupils equal round and reactive to light, extra-ocular motions intact. Lids and lashes normal. Conjunctiva and sclera are non-icteric and not injected. Cornea within normal limits. Periorbital areas with no swelling, redness, or edema. Neck: Trachea midline, no thyromegaly or masses palpated, and no cervical lymphadenopathy. Supple, full range of motion without nuchal rigidity, or vertebral point tenderness. No Meningismus. Chest/axilla: Normal chest wall appearance and motion. Nontender with no deformity. No lesions are appreciated. Cardiovascular: Regular rate and rhythm with a normal S1 and S2. No gallops, murmurs, or rubs. Normal PMI, no JVD. No pulse deficits. Respiratory: Lungs have equal breath sounds bilaterally, clear to auscultation and percussion. No rales, rhonchi or wheezes noted. No increased work of breathing, no retractions or nasal flaring. Abdomen/GI: Soft, non-tender, with normal bowel sounds. No distension or tympany. No guarding or rebound. No evidence of tenderness throughout. Skin: Warm, dry with normal turgor. Normal color with no rashes, no lesions, and no evidence of cellulitis. MS/ Extremity: Pulses equal, no cyanosis. Neurovascular intact. Full, normal range of motion. Neuro: Awake and alert, GCS 15, oriented to person, place, time, and situation. Cranial nerves II-XII grossly intact. Motor strength 5/5 in all extremities. Sensory grossly intact. Cerebellar exam normal. Normal gait. 17:04 Back: pain, that is moderate, of the right mid back, ROM is normal, normal spinal alignment noted, CVA tenderness, that is moderate, is noted on the right. Vital Signs: 15:47 BP 159 / 101; Pulse 82; Resp 20; Temp 98.1; Pulse Ox 99% ; Pain 10/10; ll1 17:27 BP 163 / 97; Pulse 94; Resp 22; Pulse Ox 97% ; sv 17:53 Pain 6/10; sv 18:32 BP 133 / 96; Pulse 92; Resp 18; Pulse Ox 96% ; sv MDM: 18:27 Patient medically screened. kdr 18:32 Data reviewed: vital signs, nurses notes, lab test result(s), radiologic studies. kdr Counseling: I had a detailed discussion with the patient and/or guardian regarding: the historical points, exam findings, and any diagnostic results supporting the discharge/admit diagnosis, lab results, radiology results, the need for outpatient follow up. 04/09 16:56 Order name: Basic Metabolic Panel; Complete Time: 17:44 kdr 04/09 16:56 Order name: CBC with Diff; Complete Time: 17:44 kdr 04/09 16:56 Order name: Hepatic Function; Complete Time: 17:44 kdr 04/09 16:56 Order name: Lipase; Complete Time: 17:44 kdr 04/09 16:56 Order name: CT Stone Protocol; Complete Time: 17:44 kdr 04/09 16:56 Order name: IV Saline Lock; Complete Time: 17:09 kdr 04/09 16:56 Order name: Labs collected and sent; Complete Time: 17:09 kdr Administered Medications: 17:19 Drug: fentaNYL (PF) 50 mcg {Note: rass3.} Route: IVP; Site: left hand; sv 17:53 Follow up: Pain 6/10 Adult; Response: No adverse reaction; Marked relief of symptoms; sv Pain is decreased; RASS: Restless (+1) 17:19 Drug: Zofran (Ondansetron) 4 mg Route: IVP; Site: left hand; sv 17:53 Follow up: Response: No adverse reaction sv 17:19 Drug: NS 0.9% 500 ml Route: IV; Rate: bolus; Site: left hand; sv 18:46 Follow up: Response: No adverse reaction; IV Status: Completed infusion; IV Intake: sv 500ml 17:50 Drug: TORadol - Ketorolac 15 mg Route: IVP; Site: left hand; sv 18:46 Follow up: Response: No adverse reaction sv Disposition: 04/09/20 18:27 Discharged to Home. Impression: Right Renal Calculus (1 mm) w/ mild bydronephrosis. - Condition is Stable. - Discharge Instructions: Kidney Stones, [id number]. - Prescriptions for Tylenol- Codeine #3 300-30 mg Oral Tablet - take 2 tablets by ORAL route every 6 hours As needed; 12 tablet. Zofran 4 mg Oral Tablet - take 1 tablet by ORAL route every 4-6 hours As needed; 12 tablet. Flomax 0.4 mg Oral Capsule, Sust. Release 24 hr - take 1 capsule by ORAL route once daily 1/2 hour following the same meal each day; 10 capsule. Bactrim DS 800- 160 mg Oral Tablet - take 1 tablet by ORAL route every 12 hours for 3 days; 6 tablet. - Work release form, Medication Reconciliation Form, Thank You Letter, Antibiotic Education, Prescription Opioid Use form. - Follow up: Private Physician; When: 2 - 3 days; Reason: If symptoms return, Further diagnostic work-up, Recheck today's complaints, Continuance of care, Re-evaluation by your physician. - Problem is new. - Symptoms have improved. Signatures: Dispatcher [employer] Prisca Alcaraz, RN RN Jaya Benitez MD MD kdr Lewis, Lynsay, RN RN ll1 Corrections: (The following items were deleted from the chart) 18:45 18:27 04/09/2020 18:27 Discharged to Home. Impression: Right Renal Calculus (1 mm) w/ sv mild bydronephrosis. Condition is Stable. Forms are Medication Reconciliation Form, Thank You Letter, Antibiotic Education, Prescription Opioid Use. Follow up: Private Physician; When: 2 - 3 days; Reason: If symptoms return, Further diagnostic work-up, Recheck today's complaints, Continuance of care, Re-evaluation by your physician. Problem is new. Symptoms have improved. kdr
[2020-04-11 15:08] VITALS: TEMP 98.1
[2020-04-11 15:11] VITALS: BP 133/96; O2SAT 96
== END 2020-04-09 18:45 | disposition home or self-care (01) ==
LOC: ER 15:29
DX: N13.2 Hydronephrosis with renal and ureteral calculous obstruction (principal)
CPT/HCPCS: 96361; 85025; 80048; 36415; 80076; 83690; 76377; 74176; 96375; 96374; 99284; J3010; J7040; J2405

== ENCOUNTER 2022-01-17 07:17 | Emergency (ER) | payer BC ==
--- OUTSIDE RECORDS SUMMARY | 2022-01-17 07:20 | XMS REPORT | Continuity of Care Document ---
:1970 Author Organization [facility] t Address [address] [place] [address] Care Team Providers Name Role Phone Cyndee Sanders Attending Clinician Unavailable MARQUIS Attending Clinician Unavailable Problems Condition Condition Condition Status Onset Resolution Last Treating Co mments Source Name Details Category Date Date Treatment Clinician Date Rupture of Rupture of Problem Active U T distal distal Physici biceps biceps ans tendon, tendon, right, right, initial initial encounter encounter Right Right Problem Active [facility] elbow pain elbow pain Ph ysici ans Allergies, Adverse Reactions, Alerts This patient has no known allergies or adverse reactions. Social History Smoking Status Start Date Stop Date Source Never smoked tobacco (finding) [facility] Medications Ordered Filled Start Stop Current Ordering Indication Dosage Frequency Signature Comments Components Source Medication Medication Date Date Medication? Clinician (SIG) Name Name Acetaminoph Acetaminoph Yes ROBYN TAKE 1 TO [facility] en-Codeine en-Codeine 03-16 MARQUIS M.D. 2 TABLETS Physici #3 300-30 #3 300-30 00:00: EVERY 5 TO ans MG Oral MG Oral 00 6 HOURS Tablet Tablet NEEDED FOR PAIN. Ezetimibe Ezetimibe 2017- Yes Dat 1 tablet Common 4-23 [facility] 00:00: - [facility] Simvastatin Simvastatin 2017- Yes Dat 1 tablet Common 3-21 [facility] 00:00: evening - [facility] Lipitor Lipitor Yes Dat 1 tablet Com mon [facility] - [facility] Zestoretic Zestoretic Yes Dat 1 tablet Common Sanders [facility] Vital Signs Vital Name Observation Time Observation Value Comments Source BP Systolic 2019-03-16 08:04:00 157 mm[Hg] [facility] BP Diastolic 2019-03-16 08:04:00 94 mm[Hg] [facility] Height 2019-03-16 08:04:00 66 [in_us] [facility] Weight 2019-03-16 08:04:00 230 [lb_av] [facility] Body Mass Index 2019-03-16 08:04:00 37.12 kg/m2 [facility] Calculated Heart Rate 2019-03-16 08:04:00 76 /min [facility] Procedures Procedure Date / Time Performed Performing Clinician Sourc e Post Op Promis 29 Survey 2019-04-13 00:00:00 [facility] [[facility]] Ortho - Surgery 2019-03-16 00:00:00 [facility] Scheduling History of Gallbladder [facility] surgery History of Knee arthroscopy [facility] History of Elbow Surgery [facility] Plan of Care Planned Activity Planned Date Details Comments Source Diagnostic Test 2019-03-16 00:00:00 [[facility]] Ortho - Surgery [facility] Pending Scheduling [code = [[facility]] Ortho - Surgery Scheduling] Encounters Start End Encounter Admission Attending Care Care Encounter Source Date/Time Date/Time Type Type Clinicians Facility Department ID 2021-11-30 Outpatient Sanders, [facility] [id number] Common 15:06:02 Dat [id number] [facility] 2021-12-10 2021-12-10 ambulatory [facility] [id number] Common 00:00:00 00:00:00 [facility] 2019-07-24 2019-07-24 [facility] [id number] [place] 14:00:00 14:00:00 t; ROBYN MARQUIS - [facility] MATTHEW, M.D. [place] 1 amelia Tellez 2019-05-09 2019-05-09 [facility] [id number] [place] 13:45:00 13:45:00 t; ROBYN MARQUIS - [facility] MATTHEW, M.D. Land 1 ans Geoff 2019-04-04 2019-04-04 Appointmen [facility] [id number] [place] 15:00:00 15:00:00 t; ROBYN MARQUIS - Sugar Geoff Pretty 1 ans M.Carter 2019-03-27 2019[facility]03-[facility] [id number] [place] 16:00:00 16:00:00 t; ROBYN MARQUIS - Sugar Geoff Pretty 1 ans MKyree 2019-03-16 2019-03-[facility] [id number] [place] 08:00:00 08:00:00 t; ROBYN MARQUIS - Sugar Geoff Pretty 1 ans M.Carter 2017-11-28 2017-11-28 Outpatient Shahram Omalleyt [id number] [place] 08:15:00 08:15:[address] [facility] 2017-11-03 2017-11-03 Outpatient Brazedu Omalleyt [id number] Common 16:07:00 16:07:[address] [facility] 2017-10-26 2017-10-26 Outpatient Shahram Chaidez [id number] Common 08:30:00 08:30:[address] [facility] Results This patient has no known results.
[2022-01-17 08:30] LABS: Absolute Lymphocytes (CBC) 1.9 K/uL (0.7-4.9); Hematocrit 44.8 % (39.6-49.0); Lymphocytes % 26.3 % (15.3-44.8); MPV 6.3 fL (7.6-11.3); RBC Red Blood Cell Count 5.07 M/uL (4.33-5.43)
[2022-01-17] MEDS ORDERED: KETOROLAC 30 MG/ML INJ ONE (08:35)
[2022-01-17] MEDS ORDERED: NA CHLORIDE 0.9% 500 ML ONE (08:35)
[2022-01-17 08:44] LABS: Albumin 3.6 g/dL (3.4-5.0); Bilirubin Total 0.3 mg/dL (0.2-1.0); Potassium 4.1 mmol/L (3.5-5.1); Protein, Total 7.1 g/dL (6.4-8.2)
[2022-01-17 08:49] LABS: Urine Blood Trace-intact (Negative); Urine Glucose Negative (Negative); Urine Protein Trace (Negative); Urine Specific Gravity >=1.030 (1.005-1.030)
--- NOTE | 2022-01-17 09:13 | RAD REPORT ---
EXAM DESCRIPTION: CT - Stone Protocol - 01/17/2022 9:01 am CLINICAL HISTORY: Abdominal pain. Right flank pain COMPARISON: 2019 TECHNIQUE: Computed axial tomography of the abdomen pelvis was obtained without oral or IV contrast. Lack of IV and oral contrast limits evaluation of solid organs, bowel, and vessels. Coronal reformat eusebia images were obtained and reviewed. All CT scans are performed using dose optimization technique as appropriate and may include automated exposure control or mA/KV adjustment according to patient size. FINDINGS: Moderate right hydronephrosis. Right hydroureter. 5.5 centimeter right renal cyst. 4 donaldo meter calculus distal right ureter. Left renal calculus is not present. No hydronephrosis. The liver, spleen, pancreas and adrenals appear grossly normal There is no evidence of diverticulitis. The appendix appears normal. Cholecystectomy. Small bilateral inguinal and umbilical hernias IMPRESSION: 4 millimeter calculus distal right ureter resulting in moderate right hydronephrosis
[2022-01-17] MEDS ORDERED: MORPHINE 4 MG/ML SYR ONE (10:20)
[2022-01-17] MEDS ORDERED: ONDANSETRON 4 MG/2 ML VIAL ONE (10:20)
--- NOTE | 2022-01-17 11:32 | EDPHYS ---
Physician Documentation [facility] Name: Kevin Bronson Age: 51 yrs Sex: Male : 1970 Arrival Date: 01/17/2022 Time: 07:18 Bed 7 Private MD: Norbert Jimenez ED Physician Jaya Moeller HPI: 01/17 09:20 This 51 yrs old Male presents to ER via Ambulatory with complaints of Urinary kdr Retention, Pelvic Pain, Possible Kidney Stone. 09:20 Patient has a history of prostate cancer and has had history of urinary retention and kdr difficulty urination. For the last few days he has felt that he has had increased difficulty urinating and possible urinary retention. He is also concerned that he has recurrence for his kidney stones. Some mild right flank pain. Nausea vomiting or fever. He is otherwise been in his usual state of health. He does not appear to be in any acute distress or toxic at this time. Onset: The symptoms/episode began/occurred gradually, 3 day(s) ago. Severity of symptoms: At their worst the symptoms were mild in the emergency department the symptoms are unchanged. The patient has experienced similar episodes in the past, multiple times. The patient has not recently seen a physician. Historical: - Allergies: 07:47 No Known Allergies; aa5 - PMHx: 07:47 Hypertension; Kidney stone; Prostate Cancer; aa5 - Immunization history:: Adult Immunizations unknown. - Social history:: Smoking status: Patient denies any tobacco usage or history of. ROS: 09:20 Constitutional: Negative for fever, chills, and weight loss, Eyes: Negative for injury, kdr pain, redness, and discharge, ENT: Negative for injury, pain, and discharge, Neck: Negative for injury, pain, and swelling, Cardiovascular: Negative for chest pain, palpitations, and edema, Respiratory: Negative for shortness of breath, cough, wheezing, and pleuritic chest pain, Back: Negative for injury and pain, : Negative for injury, bleeding, discharge, and swelling, MS/Extremity: Negative for injury and deformity, Skin: Negative for injury, rash, and discoloration, Neuro: Negative for headache, weakness, numbness, tingling, and seizure activity. Psych: Negative for depression, anxiety, suicide ideation, homicidal ideation, and hallucinations, Allergy/Immunology: Negative for hives, rash, and allergies, Endocrine: Negative for neck swelling, polydipsia, polyuria, polyphagia, and marked weight changes, Hematologic/Lymphatic: Negative for swollen nodes, abnormal bleeding, and unusual bruising. 09:20 Abdomen/GI: Positive for Flank pain right. Exam: 09:20 Constitutional: This is a well developed, well nourished patient who is awake, alert, kdr and in no acute distress. Head/Face: Normocephalic, atraumatic. Eyes: Pupils equal round and reactive to light, extra-ocular motions intact. Lids and lashes normal. Conjunctiva and sclera are non-icteric and not injected. Cornea within normal limits. Periorbital areas with no swelling, redness, or edema. Neck: Trachea midline, no thyromegaly or masses palpated, and no cervical lymphadenopathy. Supple, full range of motion without nuchal rigidity, or vertebral point tenderness. No Meningismus. Chest/axilla: Normal chest wall appearance and motion. Nontender with no deformity. No lesions are appreciated. Cardiovascular: Regular rate and rhythm with a normal S1 and S2. No gallops, murmurs, or rubs. Normal PMI, no JVD. No pulse deficits. Respiratory: Lungs have equal breath sounds bilaterally, clear to auscultation and percussion. No rales, rhonchi or wheezes noted. No increased work of breathing, no retractions or nasal flaring. Abdomen/GI: Soft, non-tender, with normal bowel sounds. No distension or tympany. No guarding or rebound. No evidence of tenderness throughout. Back: No spinal tenderness. No costovertebral tenderness. Full range of motion. Skin: Warm, dry with normal turgor. Normal color with no rashes, no lesions, and no evidence of cellulitis. MS/ Extremity: Pulses equal, no cyanosis. Neurovascular intact. Full, normal range of motion. Neuro: Awake and alert, GCS 15, oriented to person, place, time, and situation. Cranial nerves II-XII grossly intact. Motor strength 5/5 in all extremities. Sensory grossly intact. Cerebellar exam normal. Normal gait. Psych: Awake, alert, with orientation to person, place and time. Behavior, mood, and affect are within normal limits. Vital Signs: 07:48 BP 181 / 108; Pulse 76; Resp 20 S; Temp 97.7(TE); Pulse Ox 100% on R/A; Weight 99.79 kg aa5 (R); Height 5 ft. 6 in. (167.64 cm) (R); Pain 8/10; 08:13 BP 179 / 112; Pulse 70; Resp 16; Pulse Ox 98% on R/A; vg1 09:08 BP 188 / 113; Pulse 70; Resp 16; Pulse Ox 99% on R/A; vg1 10:00 BP 178 / 111; Pulse 64; Resp 16; Pulse Ox 99% on R/A; vg1 11:02 BP 168 / 107; Pulse 75; Resp 16; Pulse Ox 98% ; vg1 07:48 Body Mass Index 35.51 (99.79 kg, 167.64 cm) aa5 MDM: 09:20 Data reviewed: vital signs, nurses notes, lab test result(s), radiologic studies. kdr Counseling: I had a detailed discussion with the patient and/or guardian regarding: the historical points, exam findings, and any diagnostic results supporting the discharge/admit diagnosis, lab results, radiology results, the need for outpatient follow up. 11:31 Patient medically screened. kdr 01/17 08:07 Order name: CBC with Diff; Complete Time: 11:21 kdr 01/17 08:07 Order name: CMP; Complete Time: 11:21 kdr 01/17 08:07 Order name: Lipase; Complete Time: 11:21 kdr 01/17 08:24 Order name: CT Stone Protocol; Complete Time: 11:21 kdr 01/17 08:50 Order name: Urine Dipstick-Ancillary; Complete Time: 11:21 EDMS 01/17 08:07 Order name: IV Saline Lock; Complete Time: 08:22 kdr 01/17 08:07 Order name: Labs collected and sent; Complete Time: 08:22 kdr 01/17 08:07 Order name: Urine Dipstick-Ancillary (obtain specimen); Complete Time: 08:49 kdr 01/17 08:37 Order name: Bladder Scanner: Post void residual; Complete Time: 08:41 kdr Administered Medications: 08:38 Drug: Ketorolac 15 mg Route: IVP; Site: right antecubital; vg1 09:30 Follow up: Response: No adverse reaction; No change in condition vg1 08:38 Drug: NS 0.9% 500 ml Route: IV; Rate: bolus; Site: right antecubital; vg1 10:15 Follow up: IV Status: Completed infusion; IV Intake: 500ml aa5 11:00 Follow up: Urine output 500 ml; Response: No adverse reaction vg1 10:19 Drug: morphine 4 mg Route: IVP; Infused Over: 2 mins; Site: right antecubital; aa5 11:01 Follow up: Response: No adverse reaction; Pain is decreased vg1 10:19 Drug: Zofran (Ondansetron) 4 mg Route: IVP; Site: right antecubital; aa5 11:01 Follow up: Response: No adverse reaction vg1 11:30 Not Given (Patient Refused): [place] (HYDROcodone-acetaminophen) 10 mg-325 mg 1 tabs PO vg1 once Disposition Summary: 01/17/22 11:31 Discharge Ordered Location: Home kdr Problem: an acute exacerbation kdr Symptoms: have improved kdr Condition: Stable kdr Diagnosis - Unspecified renal colic - right - 4 mm stone kdr - Unspecified hydronephrosis kdr - Hydronephrosis with renal and ureteral calculous obstruction kdr Followup: kdr - With: Apollo Figueroa MD - When: 2 - 3 days - Reason: If symptoms return, Further diagnostic work-up, Recheck today's complaints, Continuance of care, Re-evaluation by your physician Discharge Instructions: - Discharge Summary Sheet kdr - Renal Colic, [id number] kdr - Kidney Stones, [id number] kdr - Hydronephrosis kdr Forms: - Medication Reconciliation Form kdr - Thank You Letter kdr - Antibiotic Education kdr - Prescription Opioid Use kdr Prescriptions: - Zofran 4 mg Oral Tablet - take 1 tablet by ORAL route every 4-6 hours As needed; 12 tablet; Refills: 0, kdr Product Selection Permitted - Bactrim DS 800-160 mg Oral Tablet - take 1 tablet by ORAL route every 12 hours for 3 days; 6 tablet; Refills: 0, kdr Product Selection Permitted - Tylenol-Codeine #3 300 mg-30 mg Oral - take 1 tablet by ORAL route every 4-6 hours As needed; 10 tablet; Refills: 0, kdr Product Selection Permitted Signatures: Dispatcher [employer] Jaya Cabrera MD MD kdr Clarisse Yin RN RN aa5 Roshan, Sonia, RN RN vg1
--- NOTE | 2022-01-17 11:32 | ER ---
Nurse's Notes [facility] Name: Kvein Bronson Age: 51 yrs Sex: Male : 1970 Arrival Date: 01/17/2022 Time: 07:18 Bed 7 Private MD: Norbert Jimenez Diagnosis: Unspecified renal colic-right - 4 mm stone;Unspecified hydronephrosis;Hydronephrosis with renal and ureteral calculous obstruction Presentation: 01/17 07:48 Chief complaint: Patient states: right low back pain, groin pain, and right testicular aa5 pain that began 3 days ago. Pt also reports last normal void was "Tuesday night", feels like his bladder is full but unable to urinate. Coronavirus screen: At this time, the client does not indicate any symptoms associated with coronavirus-19. Ebola Screen: No symptoms or risks identified at this time. Initial Sepsis Screen: Does the patient meet any 2 criteria? No. Patient's initial sepsis screen is negative. Does the patient have a suspected source of infection? No. Patient's initial sepsis screen is negative. Risk Assessment: Do you want to hurt yourself or someone else? Patient reports no desire to harm self or others. Onset of symptoms was January 2022. 07:48 Acuity: AARON 2 aa5 07:48 Method Of Arrival: Ambulatory aa5 Historical: - Allergies: 07:47 No Known Allergies; aa5 - PMHx: 07:47 Hypertension; Kidney stone; Prostate Cancer; aa5 - Immunization history:: Adult Immunizations unknown. - Social history:: Smoking status: Patient denies any tobacco usage or history of. Screenin:08 Abuse screen: Denies threats or abuse. Nutritional screening: No deficits noted. vg1 Tuberculosis screening: No symptoms or risk factors identified. Fall Risk No fall in past 12 months (0 pts). No secondary diagnosis (0 pts). IV access (20 points). Ambulatory Aid- None/Bed Rest/Nurse Assist (0 pts). Gait- Normal/Bed Rest/Wheelchair (0 pts) Mental Status- Oriented to own ability (0 pts). Total Marion Fall Scale indicates No Risk (0-24 pts). Assessment: 08:08 General: Appears in no apparent distress. uncomfortable, Behavior is calm, cooperative. vg1 Pain: Complains of pain in Right flank, right side of groin, and lower back Pain currently is 8 out of 10 on a pain scale. Pain began 2-3 days ago. Neuro: Level of Consciousness is awake, alert, obeys commands, Oriented to person, place, time, situation. Cardiovascular: Patient's skin is warm and dry. Respiratory: Airway is patent Respiratory effort is even, unlabored. GI: Abdomen is round non-distended, Bowel sounds present X 4 quads. : Reports inability to void, since TuesdayJanuary 15, night Denies burning with urination. EENT: No signs and/or symptoms were reported regarding the EENT system. Derm: Skin is intact, is healthy with good turgor. Musculoskeletal: Circulation, motion, and sensation intact. 08:43 Reassessment: bladder scan completed, 0 mL after pt voided approximately 30 mL; pt vg1 stated "I still feel pressure near my bladder like I still need to go pee"; provider notified. 09:08 Reassessment: Patient appears in no apparent distress at this time. No changes from vg1 previously documented assessment. Patient and/or family updated on plan of care and expected duration. Pain level reassessed. Patient is alert, oriented x 3, equal unlabored respirations, skin warm/dry/pink. 09:10 Reassessment: BP elevated; pt stated did not take BP meds this morning; provider vg1 notified. 10:15 Reassessment: Patient is alert, oriented x 3, equal unlabored respirations, skin aa5 warm/dry/pink. Pt reports increased pain, MD was notified. . General: Appears uncomfortable. 11:01 Reassessment: Patient appears in no apparent distress at this time. Patient and/or vg1 family updated on plan of care and expected duration. Pain level reassessed. Patient is alert, oriented x 3, equal unlabored respirations, skin warm/dry/pink. stated pain level 2/10. Vital Signs: 07:48 BP 181 / 108; Pulse 76; Resp 20 S; Temp 97.7(TE); Pulse Ox 100% on R/A; Weight 99.79 kg aa5 (R); Height 5 ft. 6 in. (167.64 cm) (R); Pain 8/10; 08:13 BP 179 / 112; Pulse 70; Resp 16; Pulse Ox 98% on R/A; vg1 09:08 BP 188 / 113; Pulse 70; Resp 16; Pulse Ox 99% on R/A; vg1 10:00 BP 178 / 111; Pulse 64; Resp 16; Pulse Ox 99% on R/A; vg1 11:02 BP 168 / 107; Pulse 75; Resp 16; Pulse Ox 98% ; vg1 07:48 Body Mass Index 35.51 (99.79 kg, 167.64 cm) aa5 ED Course: 07:18 Patient arrived in ED. as 07:19 Norbert Jimenez MD is Private Physician. as 07:47 Arm band placed on. aa5 07:50 Triage completed. aa5 07:54 Sonia Islas, BETY is Primary Nurse. vg1 07:59 Jaya Moeller MD is Attending Physician. kdr 08:08 Patient has correct armband on for positive identification. Bed in low position. Call vg1 light in reach. Side rails up X 1. 08:25 Initial lab(s) drawn, by me, sent to lab. Inserted saline lock: 20 gauge in right vg1 antecubital area, using aseptic technique. Blood collected. 08:36 Bladder scan completed. 0 mL. vg1 09:03 CT Stone Protocol In Process Unspecified. EDMS 11:30 Apollo Figueroa MD is Referral Physician. kdr 11:40 No provider procedures requiring assistance completed. IV discontinued, intact, vg1 bleeding controlled, No redness/swelling at site. Pressure dressing applied. Administered Medications: 08:38 Drug: Ketorolac 15 mg Route: IVP; Site: right antecubital; vg1 09:30 Follow up: Response: No adverse reaction; No change in condition vg1 08:38 Drug: NS 0.9% 500 ml Route: IV; Rate: bolus; Site: right antecubital; vg1 10:15 Follow up: IV Status: Completed infusion; IV Intake: 500ml aa5 11:00 Follow up: Urine output 500 ml; Response: No adverse reaction vg1 10:19 Drug: morphine 4 mg Route: IVP; Infused Over: 2 mins; Site: right antecubital; aa5 11:01 Follow up: Response: No adverse reaction; Pain is decreased vg1 10:19 Drug: Zofran (Ondansetron) 4 mg Route: IVP; Site: right antecubital; aa5 11:01 Follow up: Response: No adverse reaction vg1 11:30 Not Given (Patient Refused): [place] (HYDROcodone-acetaminophen) 10 mg-325 mg 1 tabs PO vg1 once Medication: 08:08 VIS not applicable for this client. vg1 Intake: 10:15 IV: 500ml; Total: 500ml. aa5 Output: 11:00 Urine: 500ml; Total: 500ml. vg1 Outcome: 11:31 Discharge ordered by . kdr 11:40 Discharged to home ambulatory. vg1 11:40 Condition: good 11:40 Discharge instructions given to patient, Instructed on discharge instructions, follow up and referral plans. medication usage, Demonstrated understanding of instructions, follow-up care, medications, Prescriptions given X 3. 11:40 Patient left the ED. vg1 Signatures: Dispatcher [employer] EDMS Jaya Moeller MD MD kdr Fani Fountain Audri, RN RN aa5 Sonia Islas RN RN vg1 Corrections: (The following items were deleted from the chart) 07:50 07:48 BP 181 / 108; Pulse 76bpm; Resp 20bpm; Spontaneous; Pulse Ox 100% RA; Temp 97.7F aa5 Temporal; 99.79 kg Reported; Height 5 ft. 6 in. Reported; BMI: 35.5; aa5 08:42 08:41 Inserted saline lock: 20 gauge in right antecubital area, using aseptic vg1 technique. Blood collected. vg1 08:42 08:41 Initial lab(s) drawn, by ny, sent to lab. vg1 vg1
[2022-01-17] MEDS ORDERED: HYDROCODONE/APAP 10/325 TAB ONE (11:35)
[2022-01-17 11:47] VITALS: TEMP 97.7
[2022-01-17 11:53] VITALS: BP 168/107; O2SAT 98
== END 2022-01-17 11:40 | disposition home or self-care (01) ==
LOC: ER 07:17
DX: N13.2 Hydronephrosis with renal and ureteral calculous obstruction (principal); Z87.442 Personal history of urinary calculi; Z85.46 Personal history of malignant neoplasm of prostate; I10 Essential (primary) hypertension
CPT/HCPCS: 96361; 85025; 36415; 81003; 83690; 80053; 76377; 74176; 96375; 96374; 99284; J7040; J2405

== ENCOUNTER 2024-09-13 17:17 | Inpatient (IN) | payer BC ==
--- NOTE | 2024-09-13 19:41 | ER ---
Nurse's Notes [facility] Name: Kevin Bronson Age: 53 yrs Sex: Male : 1970 Arrival Date: 09/13/2024 Time: 17:17 Bed 26 Private MD: Diagnosis: Acute pancreatitis without necrosis or infection, unspecified Presentation: 09/13 17:30 Chief complaint: Patient states: Sent by Janette EVANS for pancreatitis. c/o me1 general abdominal pain radiates to the back with n/v'/d since Tuesday. Coronavirus screen: Vaccine status: Patient reports being unvaccinated. Ebola Screen: No symptoms or risks identified at this time. Initial Sepsis Screen: Does the patient meet any 2 criteria? No. Patient's initial sepsis screen is negative. Risk Assessment: Do you want to hurt yourself or someone else? Patient reports no desire to harm self or others. Onset of symptoms was September 11, 2024. 17:30 [place] Of [place] [facility] [place] Acuity: AARON 3 me1 Historical: - PMHx: 17:31 Hypertension; Kidney stone; Prostate Cancer; me1 - PSHx: 17:31 Cholecystectomy; Operative procedure on knee; me1 - Immunization history:: Adult Immunizations up to date. - Infectious Disease History:: Denies. - Social history:: Smoking status: Patient denies any tobacco usage or history of. Screenin:20 [facility] ED Fall Risk Assessment (Adult) History of falling in the last 3 months, ay including since admission No falls in past 3 months (0 pts) Confusion or Disorientation No (0 pts) Intoxicated or Sedated No (0 pts) Impaired Gait No (0 pts) Mobility Assist Device Used No (0 pt) Altered Elimination No (0 pt) Score/Fall Risk Level 0 - 2 = Low Risk Oriented to surroundings, Maintained a safe environment, Educated pt \T\ family on fall prevention, incl call for assistance when getting out of bed. Abuse screen: Denies threats or abuse. Nutritional screening: No deficits noted. Tuberculosis screening: No symptoms or risk factors identified. Assessment: 19:20 General: Appears in no apparent distress. uncomfortable, Behavior is calm, cooperative, ay Reports. Pain: Complains of pain in epigastric area Pain radiates to back. Neuro: Level of Consciousness is awake, alert, obeys commands, Oriented to person, place, time, situation, Speech is normal. Cardiovascular: Denies chest pain, nausea, Capillary refill < 3 seconds. Respiratory: Airway is patent Respiratory effort is even, unlabored, Respiratory pattern is regular, symmetrical. GI: Bowel sounds present X 4 quads. Abdomen is tender to palpation X 4 quads. : No signs and/or symptoms were reported regarding the genitourinary system. EENT: No signs and/or symptoms were reported regarding the EENT system. Derm: No signs and/or symptoms reported regarding the dermatologic system. Vital Signs: 17:30 BP 120 / 84; Pulse 94; Resp 16; Temp 98.8; Pulse Ox 97% ; Weight 94.35 kg; Height 5 ft. me1 6 in. ; Pain 6/10; 21:36 BP 133 / 81; Pulse 83; Resp 17; Pulse Ox 97% ; ay 22:45 BP 140 / 88; Pulse 82; Resp 17; Pulse Ox 96% on R/A; ay 17:30 Body Mass Index 33.57 (94.35 kg, 167.64 cm) me1 17:30 Pain Scale: Adult me1 Marlene Coma Score: 19:20 Eye Response: spontaneous(4). Motor Response: obeys commands(6). Verbal Response: ay oriented(5). Total: 15. ED Course: 17:22 Patient arrived in ED. al6 17:23 Franco Sanford PA is PHCP. cp 17:23 Franco Montalvo MD is Attending Physician. cp 17:31 Triage completed. me1 17:31 Arm band placed on Patient placed in waiting room. me1 19:20 Patient has correct armband on for positive identification. Bed in low position. Call ay light in reach. Side rails up X2. 19:20 No provider procedures requiring assistance completed. ay 19:41 Rd Bella MD is Hospitalizing Provider. cp 20:26 Inserted saline lock: 22 gauge in right antecubital area, using aseptic technique. mm11 Blood collected. Flushed with 10 mL NS. 20:26 Ptt, Activated Sent. mm11 20:26 PT-INR Sent. mm11 20:26 Lactate w/ 2H reflex if indic. Sent. mm11 20:26 Magnesium Sent. mm11 20:26 CBC with Diff Sent. mm11 20:27 CMP Sent. mm11 20:27 Lipase Sent. mm11 21:24 Ld Acharya, RN is Primary Nurse. ay 21:24 Blood Culture Adult (2) Sent. ay Administered Medications: 21:54 Drug: NS 0.9% IV 1000 ml IV at 1 bolus Per protocol; to be given as a bolus over 60 ay minutes Route: IV; Rate: 1 bolus; Site: right antecubital; 23:06 Follow up: Response: No adverse reaction; IV Status: Completed infusion; IV Intake: ay 1000ml 23:05 Drug: morphine IVP or IV 4 mg IVP once over 4 mins Route: IVP; Infused Over: 4 mins; ay Site: right antecubital; 23:05 Drug: Ondansetron IVP 4 mg IVP once; over 2 minutes Route: IVP; Site: right antecubital;ay Intake: 23:06 IV: 1000ml; Total: 1000ml. ay Outcome: 19:41 Decision to Hospitalize by Provider. 09/14 13:50 Patient left the ED. ap3 Signatures: Franco Sanford PA PA cp Carmen Argueta, RN RN ap3 Laurie Esquivel, RN RN me1 Ld Acharya, RN RN ay Flor Evans al6 humphrey singleton mm11 Corrections: (The following items were deleted from the chart) 09/13 20:35 20:26 Troponin High Sensitivity+C.LAB.BRZ drawn and sent. mm11 EDMS 20:35 20:26 Lipid Profile drawn and sent. mm11 EDMS
--- NOTE | 2024-09-13 19:41 | EDPHYS ---
Physician Documentation [facility] Name: Kevin Bronson Age: 53 yrs Sex: Male : 1970 Arrival Date: 09/13/2024 Time: 17:17 Bed 26 Private MD: Franco Espinoza HPI: 09/13 18:20 This 53 yrs old Male presents to ER via Ambulatory with complaints of Abdominal Pain. cp 18:20 The patient presents with abdominal pain in the epigastric area, in the upper abdomen. cp Onset: The symptoms/episode began/occurred 2 day(s) ago. Associated signs and symptoms: Pertinent positives: vomiting, Pertinent negatives: constipation, diarrhea, shortness of breath. The symptoms radiate to back, chest. Historical: - PMHx: 17:31 Hypertension; Kidney stone; Prostate Cancer; me1 - PSHx: 17:31 Cholecystectomy; Operative procedure on knee; me1 - Immunization history:: Adult Immunizations up to date. - Infectious Disease History:: Denies. - Social history:: Smoking status: Patient denies any tobacco usage or history of. ROS: 18:25 Constitutional: Positive for poor PO intake, Negative for body aches, chills, fever, cp 18:25 Neck: Negative for pain with movement, pain at rest, stiffness, cp 18:25 Respiratory: Negative for cough, shortness of breath, wheezing, 18:25 Abdomen/GI: Positive for abdominal pain, nausea and vomiting, anorexia, of the epigastric area, Negative for diarrhea, constipation, hematemesis, 18:25 Back: Positive for radiated pain, 18:25 : Negative for urinary symptoms, 18:25 Eyes: Negative for injury, pain, redness, and discharge, cp 18:25 ENT: Negative for drainage from ear(s), ear pain, sore throat, difficulty swallowing, cp difficulty handling secretions, 18:25 All other systems are negative, Exam: 18:30 Constitutional: The patient appears in no acute distress, alert, awake, cp non-diaphoretic, non-toxic, well developed, well nourished, uncomfortable, 18:30 Head/Face: Normocephalic, atraumatic. cp 18:30 Eyes: Periorbital structures: appear normal, Conjunctiva: normal, no exudate, no cp injection, Sclera: no appreciated abnormality, Lids and lashes: appear normal, bilaterally, 18:30 ENT: External ear(s): are unremarkable, Nose: is normal, Mouth: Lips: moist, Oral mucosa: moist, Posterior pharynx: Airway: no evidence of obstruction, patent, 18:30 Neck: ROM/movement: is normal, is supple, without pain, no range of motions limitations, 18:30 Chest/axilla: Inspection: normal, 18:30 Cardiovascular: Rate: normal, Rhythm: regular, Edema: is not appreciated, JVD: is not appreciated, 18:30 Respiratory: the patient does not display signs of respiratory distress, Respirations: normal, no use of accessory muscles, no retractions, labored breathing, is not present, Breath sounds: are clear throughout, no decreased breath sounds, no stridor, no wheezing, 18:30 Abdomen/GI: Inspection: abdomen appears normal, Bowel sounds: active, all quadrants, Palpation: soft, in all quadrants, moderate abdominal tenderness, in the epigastric area, voluntary guarding, is elicited in the epigastric area, 18:30 Back: CVA tenderness, is absent, 18:30 Neuro: Orientation: to person, place \T\ time. Mentation: is normal, Motor: moves all fours, strength is normal, Sensation: no obvious gross deficits, 21:20 ECG was reviewed by the Attending Physician. cp Vital Signs: 17:30 BP 120 / 84; Pulse 94; Resp 16; Temp 98.8; Pulse Ox 97% ; Weight 94.35 kg; Height 5 ft. me1 6 in. ; Pain 6/10; 21:36 BP 133 / 81; Pulse 83; Resp 17; Pulse Ox 97% ; ay 22:45 BP 140 / 88; Pulse 82; Resp 17; Pulse Ox 96% on R/A; ay 17:30 Body Mass Index 33.57 (94.35 kg, 167.64 cm) me1 17:30 Pain Scale: Adult me1 [place] Coma Score: 19:20 Eye Response: spontaneous(4). Motor Response: obeys commands(6). Verbal Response: ay oriented(5). Total: 15. MDM: 17:33 Medical Screening Exam initiated keyon 19:45 Management of patient was discussed with the following: Hospitalist: DR Bella will cp admit after discussion. 22:40 Data reviewed: vital signs, nurses notes, I have discussed the patient's cp presentation/case with the attending Emergency Department Physician; and as a result, I will admit patient. 09/13 18:23 Order name: CBC with Diff; Complete Time: 21:33 cp 02/ 21:33 Interpretation: Normal except: WBC 14.40; MPV 6.6; LYM% 14.3; NEUT A 10.0; MNA 1.7; cp EOSA 0.6. 09/13 18:23 Order name: CMP; Complete Time: 22:38 cp 02/ 22:38 Interpretation: Normal except: GFR 86; AST 12; ALB 3.0; A/G 0.9. cp 09/13 18:23 Order name: Lipase; Complete Time: 22:38 cp 09/13 22:38 Interpretation: Abnormal: LIP 494. cp 09/13 18:23 Order name: Urinalysis w/ reflexes cp 09/13 18:23 Order name: Magnesium; Complete Time: 22:38 cp 09/13 22:38 Interpretation: Reviewed. cp 09/13 18:23 Order name: Lactate w/ 2H reflex if indic.; Complete Time: 21:33 cp 09/13 22:39 Interpretation: Reviewed. cp 09/13 20:07 Order name: Blood Culture Adult (2) cp 09/13 20:07 Order name: PT-INR; Complete Time: 22:38 cp / 22:38 Interpretation: Reviewed. cp 09/13 20:07 Order name: Ptt, Activated; Complete Time: 22:38 cp 09/13 20:35 Order name: Troponin High Sensitivity; Complete Time: 22:38 EDMS 09/13 22:39 Interpretation: Reviewed. cp 09/13 20:35 Order name: Lipid Profile; Complete Time: 22:38 EDMS / 20:45 Order name: Urinalysis w/ reflexes EDMS 09/13 20:45 Order name: CBC with Automated Diff EDMS 09/13 20:45 Order name: CBC with Automated Diff EDMS 09/13 20:45 Order name: Comprehensive Metabolic Panel EDMS 09/13 20:45 Order name: Comprehensive Metabolic Panel EDMS 09/13 20:45 Order name: Troponin High Sensitivity EDMS 09/13 20:45 Order name: Troponin High Sensitivity EDMS 09/13 20:45 Order name: Troponin High Sensitivity EDMS 09/13 20:45 Order name: Troponin High Sensitivity EDMS 09/14 11:28 Order name: Lipase EDMS 09/13 20:07 Order name: XRAY Chest (1 view) cp 09/13 21:13 Order name: RAD; Complete Time: 21:33 EDMS 09/13 20:07 Order name: EKG; Complete Time: 20:08 cp 09/13 18:23 Order name: IV Saline Lock; Complete Time: 20:27 cp 09/13 18:23 Order name: Labs collected and sent; Complete Time: 20:27 cp 09/13 20:07 Order name: EKG - Nurse/Tech; Complete Time: 21:20 cp 09/13 20:41 Order name: Labs - recollect needed; Complete Time: 21:49 kmf EC:20 Rate is 75 beats/min. Rhythm is regular. IL interval is normal. QRS interval is cp prolonged at 102 msec. QT interval is normal. T waves are Inverted in lead aVR. Interpreted by me. Reviewed by me. Administered Medications: 21:54 Drug: NS 0.9% IV 1000 ml IV at 1 bolus Per protocol; to be given as a bolus over 60 ay minutes Route: IV; Rate: 1 bolus; Site: right antecubital; 23:06 Follow up: Response: No adverse reaction; IV Status: Completed infusion; IV Intake: ay 1000ml 23:05 Drug: morphine IVP or IV 4 mg IVP once over 4 mins Route: IVP; Infused Over: 4 mins; ay Site: right antecubital; 23:05 Drug: Ondansetron IVP 4 mg IVP once; over 2 minutes Route: IVP; Site: right antecubital;ay Disposition: 09/14 23:26 Co-signature as Attending Physician, Franco Montalvo MD I agree with the assessment and keyon plan of care. Disposition Summary: 09/13/24 19:41 Hospitalization Ordered Notes: Hospitalization Status: Inpatient Admission cp Provider: Rd Bella cp Condition: Stable cp Problem: new cp Symptoms: are unchanged cp Bed/Room Type: Standard cp Location: Telemetry/MedSurg (Inpatient)(09/14/24 13:23) eb Room Assignment: 229(09/14/24 13:23) eb Diagnosis - Acute pancreatitis without necrosis or infection, unspecified cp Forms: - Medication Reconciliation Form cp - SBAR form cp - Leadership Thank You Letter cp Signatures: Dispatcher [employer] EDMS Franco Montalvo MD MD cha Page, Corey, SANDRA FLORES cp Diana Gerardo Michelle, RN RN me1 Abi Slaughter [facility] Ld Acharya RN RN ay Corrections: (The following items were deleted from the chart) 09/13 20:08 20:08 BLOOD CULTURE*+BA.LAB.BRZ ordered. EDMS EDMS 20:08 20:08 PROTIME (+INR)+COAG.LAB.BRZ ordered. EDMS EDMS 20:08 20:08 PTT, ACTIVATED+COAG.LAB.BRZ ordered. EDMS EDMS 20:35 19:41 Lipid Profile ordered. EDMS EDMS 20:35 20:08 Troponin High Sensitivity+C.LAB.BRZ ordered. EDMS EDMS 09/14 04:14 02 19:41 Telemetry/MedSurg (Inpatient) [facility] 09/14 04:14 09/13 19:41 [facility] 09/14 13:23 04:14 [facility] ER HOLD [facility] eb 13:23 04:14 ERHOLD- [facility] eb
[2024-09-13 20:38] LABS: Absolute Eosinophils 0.6 K/uL (0-0.5); Absolute Lymphocytes (CBC) 2.1 K/uL (0.7-4.9); Absolute Monocytes 1.7 K/uL (0.1-1.3); Basophils % 0.2 % (0-1.3); Eosinophils % 4.3 % (0-4.4); Hematocrit 45.4 % (39.6-49.0); Hemoglobin 15.9 g/dL (13.6-17.9); Lymphocytes % 14.3 % (15.3-44.8); MCH 31.1 pg (27.0-35.0); MCV 88.9 fL (80-100); MPV 6.6 fL (7.6-11.3); Monocytes % 11.6 % (3.3-12.3); Neutrophils % 69.6 % (41.7-73.7); Platelets 308 thou/uL (152-406); RBC Red Blood Cell Count 5.11 M/uL (4.33-5.43); Red Cell Distribution Width 13.8 % (12.1-15.2)
[2024-09-13] MEDS ORDERED: ACETAMINOPHEN 325 MG TABLET PO PRN (20:41)
[2024-09-13] MEDS ORDERED: ONDANSETRON 4 MG/2 ML VIAL IV PRN (20:41)
--- NOTE | 2024-09-13 20:41 | P.HP ---
Certification for Inpatient Patient admitted to: Inpatient With expected LOS: >2 Midnights Practitioner: I am a practitioner with admitting privileges, knowledge of patient current condition, hospital course, and medical plan of care. Services: Services provided to patient in accordance with Admission requirements found in Title 42 Section 412.3 of the Code of Federal Regulations Patient History Date of Service: 09/14/24 Reason for admission: Abdominal Pain History of Present Illness: 53 yrs old Male with a past medical history of kidney stone, hypertension, prostate cancer came to ER with abdominal pain . Patient was seen PCPs office and was sent over here for further management. CT was consistent with possible pancreatitis/pyelonephritis. Lipase was elevated. Pain started 2 days ago and has been progressively getting worse. Sharp, 6 out of 10 in severity at the time of interview, radiating to the back. Associated with some diaphoresis. Complains of epigastric discomfort as well radiating to the chest. Also complains of left flank pain. Patient was assessed in the ER and is admitted for further management Allergies No Known Allergies Allergy (Unverified 09/13/24 23:44) - Past Medical/Surgical History Has patient received pneumonia vaccine in the past: Yes Past Medical History: Reviewed- Non-Contributory -: Hypertension, hyperlipidemia, prostate cancer, history of kidney stones Past Surgical History: Reviewed- Non-Contributory -: Knee surgery - Family History Family History: Reviewed- Non-Contributory - Social History Smoking Status: Never smoker Review of Systems 10-point ROS is otherwise unremarkable Physical Examination - Vital Signs Temperature: 97.8 F Blood Pressure: 132/68 Pulse: 76 Respirations: 18 Pulse Ox (%): 94 - Physical Exam General: Alert, Oriented x3, Mild distress HEENT: Atraumatic, Normocephalic Neck: Supple, JVD not distended Respiratory: Clear to auscultation bilaterally, Normal air movement Cardiovascular: Regular rate/rhythm, Normal S1 S2 Capillary refill: <2 Seconds Gastrointestinal: Soft and benign, W/out hepatosplenomegaly Musculoskeletal: No clubbing, No swelling Integumentary: No rashes, No tenderness/swelling Neurological: Normal gait, Normal speech, Cranial nerves 3-12 intact, Normal reflexes 2+ Lymphatics: No axilla or inguinal lymphadenopathy - Studies Laboratory Data (last 24 hrs) 09/13/24 20:07 Triglycerides Cancelled Cholesterol Cancelled HDL Cholesterol Cancelled Cholesterol/HDL Ratio Cancelled Assessment and Plan - Plan Acute pancreatitis Pain control CT findings noted Lipase trended Monitor closely on telemetry Aggressive hydration Chest pain to rule out ACS Will trend cardiac enzymes Will monitor telemetry Started on aspirin and statin Patient denies any chest pain Cardiology consult if troponins elevated Hypertension Antihypertensives titrated Continue home medications and titrate as needed GI/DVT prophylaxis Advanced directive full code Discharge Plan: Home Plan to discharge in: 72 Hours - Advance Directives Does patient have a Living Will: No Does patient have a Durable POA for Healthcare: No - Code Status/Comfort Care Code Status: Full Code Time Spent Managing Pts Care (In Minutes): 48
[2024-09-13] MEDS ORDERED: HYDROCODONE/APAP 5/325 MG TAB PO PRN (20:44)
--- NOTE | 2024-09-13 21:13 | RAD REPORT ---
EXAMINATION: ONE VIEW CHEST XR CLINICAL INDICATION: Male, 53 years old.,CHEST PAIN TECHNIQUE: Frontal chest projection is submitted. Examination is limited by patient positioning and t echnique. COMPARISON: No prior exam. FINDINGS: The lungs are grossly clear although suboptimal inspiratory effort somewhat limits evaluation. No pn eumothorax or sizable effusion. The heart is normal in size. Mediastinal contours are unremarkable. IMPRESSION: No acute intrathoracic abnormalities.
[2024-09-13 22:03] LABS: PT Prothrombin Time 12.7 SECONDS (9.4-12.5); PTT, Activated Partial Thromb 29.3 SECONDS (24.3-36.9); Protime INR 1.21
[2024-09-13 22:20] LABS: Albumin/Globulin Ratio 0.9 (1.1-1.8); Anion Gap 7.3 mEq/L (5.0-15.0); Bilirubin Total 0.6 mg/dL (0.2-1.0); Globulin 3.5 g/dL (2.3-3.5); Magnesium 2.6 mg/dL (1.6-2.4); Potassium 4.3 mEq/L (3.5-5.1); Protein, Total 6.5 g/dL (6.4-8.2); Troponin High Sensitivity 12.2 pg/mL (<58.9)
[2024-09-13] MEDS ORDERED: MORPHINE 4 MG/ML SYR ONE (22:53)
[2024-09-14] MEDS ORDERED: CEFTRIAXONE 1000 MG/VIAL ONE ×2 (03:25→08:34)
[2024-09-14] MEDS ORDERED: NA CHLORIDE 0.9% 1,000 ML ONE ×2 (03:25→08:34)
[2024-09-14] MEDS: NA CHLORIDE 0.9% 1,000 ML IV SCH (03:34)
[2024-09-14] MEDS: CEFTRIAXONE 1,000 MG in NA CHLORIDE 0.9% 50 ML IVPB SCH (03:34)
[2024-09-14 04:56] LABS: Absolute Eosinophils 0.8 K/uL (0-0.5); Absolute Lymphocytes (CBC) 2.1 K/uL (0.7-4.9); Absolute Monocytes 1.3 K/uL (0.1-1.3); Absolute Neutrophil 7.5 K/uL (1.8-8.0); Basophils % 0.3 % (0-1.3); Hematocrit 42.8 % (39.6-49.0); Hemoglobin 14.7 g/dL (13.6-17.9); Lymphocytes % 17.4 % (15.3-44.8); MCH 31.1 pg (27.0-35.0); MCHC 34.4 g/dL (32.0-36.0); MCV 90.5 fL (80-100); MPV 6.6 fL (7.6-11.3); Monocytes % 11.2 % (3.3-12.3); Neutrophils % 64.1 % (41.7-73.7); Platelets 264 thou/uL (152-406); RBC Red Blood Cell Count 4.73 M/uL (4.33-5.43); Red Cell Distribution Width 13.6 % (12.1-15.2)
[2024-09-14 05:20] LABS: ALT/SGPT 20 U/L (16-61); Albumin 2.7 g/dL (3.4-5.0); Albumin/Globulin Ratio 0.8 (1.1-1.8); Alkaline Phosphatase 68 U/L (45-117); Anion Gap 6.8 mEq/L (5.0-15.0); BUN Blood Urea Nitrogen 17 mg/dL (7-18); Bicarbonate 26 mEq/L (21-32); Bilirubin Total 0.5 mg/dL (0.2-1.0); Globulin 3.5 g/dL (2.3-3.5); Glomerular Filtration Rate 105 ml/min (=/>90); Glucose Level 82 mg/dL (74-106); Potassium 3.8 mEq/L (3.5-5.1); Protein, Total 6.2 g/dL (6.4-8.2); Sodium Level 138 mEq/L (136-145); Troponin High Sensitivity 11.8 pg/mL (<58.9)
[2024-09-14 05:26] LABS: AST/SGOT < 10 U/L (15-37)
[2024-09-14 06:14] VITALS: BMI 33.5
[2024-09-14 07:42] VITALS: O2SAT 95
[2024-09-14] MEDS ORDERED: MORPHINE 2 MG/ML SYR ONE (08:34)
[2024-09-14] MEDS ORDERED: NA CHLORIDE 0.9% 100 ML ONE (08:35)
[2024-09-14] MEDS ORDERED: ENOXAPARIN 40 MG/0.4 ML SQ ONE (08:35)
[2024-09-14] MEDS: ENOXAPARIN 40 MG/0.4 ML SQ SCH (08:41)
[2024-09-14] MEDS: MORPHINE 2 MG/ML SYR IV PRN (08:42)
[2024-09-14 11:28] LABS: Lipase 306 U/L (13-75)
[2024-09-15 04:57] LABS: Absolute Eosinophils 0.7 K/uL (0-0.5); Absolute Lymphocytes (CBC) 1.7 K/uL (0.7-4.9); Absolute Neutrophil 6.4 K/uL (1.8-8.0); Basophils % 0.4 % (0-1.3); Eosinophils % 7.1 % (0-4.4); Hemoglobin 14.4 g/dL (13.6-17.9); Lymphocytes % 17.6 % (15.3-44.8); MCH 31.3 pg (27.0-35.0); MCHC 35.2 g/dL (32.0-36.0); MCV 88.8 fL (80-100); MPV 6.9 fL (7.6-11.3); Monocytes % 10.6 % (3.3-12.3); Neutrophils % 64.3 % (41.7-73.7); Nucleated Red Blood Cells % 0.1 % (0-0); Platelets 274 thou/uL (152-406); RBC Red Blood Cell Count 4.61 M/uL (4.33-5.43); Red Cell Distribution Width 13.6 % (12.1-15.2)
[2024-09-15 05:19] LABS: Albumin 2.8 g/dL (3.4-5.0); Albumin/Globulin Ratio 0.8 (1.1-1.8); Anion Gap 0.1 mEq/L (5.0-15.0); Bilirubin Total 0.6 mg/dL (0.2-1.0); Globulin 3.5 g/dL (2.3-3.5); Magnesium 2.2 mg/dL (1.6-2.4); Phosphorus 2.2 mg/dL (2.5-4.9); Potassium 4.1 mEq/L (3.5-5.1); Protein, Total 6.3 g/dL (6.4-8.2)
[2024-09-15 08:19] VITALS: TEMP 97.9
[2024-09-15] MEDS: POTASS/SODIUM PHOSPHATE 1 PKT POWD.PACK PO SCH (09:39)
--- NOTE | 2024-09-15 11:26 | P.DS ---
Admission Date: 09/13/24 Discharge Date: 09/15/24 Disposition: ROUTINE DISCHARGE Discharge Condition: GOOD Reason for Admission: Abdominal Pain Brief History of Present Illness: 53 yrs old Male with a past medical history of kidney stone, hypertension, prostate cancer came to ER with abdominal pain . Patient was seen PCPs office and was sent over here for further management. CT was consistent with possible pancreatitis/pyelonephritis. Lipase was elevated. Pain started 2 days ago and has been progressively getting worse. Sharp, 6 out of 10 in severity at the time of interview, radiating to the back. Associated with some diaphoresis. Complains of epigastric discomfort as well radiating to the chest. Also complains of left flank pain. He was admitted for pancreatitis, treated with IV fluids, IV antibiotics, as needed analgesics - Physical Exam General: Alert, Oriented x3, HEENT: Atraumatic, Normocephalic Neck: Supple, JVD not distended Respiratory: Clear to auscultation bilaterally, Normal air movement Cardiovascular: Regular rate/rhythm, Normal S1 S2 Capillary refill: <2 Seconds Gastrointestinal: Soft and benign, W/out hepatosplenomegaly Musculoskeletal: No clubbing, No swelling Integumentary: No rashes, No tenderness/swelling Neurological: Normal gait, Normal speech, Cranial nerves 3-12 intact, Normal reflexes 2+ Hospital Course: 53 yrs old Male with a past medical history of kidney stone, hypertension, prostate cancer came to ER with abdominal pain . Patient was seen PCPs office and was sent over here for further management. CT was consistent with possible pancreatitis/pyelonephritis. Lipase was elevated. Pain started 2 days ago and has been progressively getting worse. Sharp, 6 out of 10 in severity at the time of interview, radiating to the back. Associated with some diaphoresis. Complains of epigastric discomfort as well radiating to the chest. Also complains of left flank pain. He was admitted for pancreatitis, treated with IV fluids, IV antibiotics, as needed analgesics, tolerated diet, stable to discharge home, follow-up with PCP after discharge Assessment Acute pancreatitis-resolved, tolerating diet, recommend slowly advance diet as tolerated after discharge Chest pain rule out LA, serial troponins were negative Hypertension resume home meds after discharge Continue home medicines as previously prescribed GOAL: Clear understanding of disease process INSTRUCTIONS: Physician Discharge Instructions: -Follow-up with PCP in 1 to 2 weeks -Please call Dr. Tracy at [phone] if any questions regarding hospital stay -Please call nursing station at [phone] if any nursing or medication questions -Return to the emergency room if symptoms worsen Diet: ADA, low sodium Activity: Fall precautions Vital Signs/Physical Exam: Temp Pulse Resp BP Pulse Ox 97.9 F 78 12 132/89 94 09/15/24 08:00 09/15/24 08:00 09/15/24 08:00 09/15/24 08:00 09/15/24 08:00 Laboratory Data at Discharge: WBC 9.90 thou/uL (4.3-10.9) 09/15/24 04:08 Hgb 14.4 g/dL (13.6-17.9) 09/15/24 04:08 Hct 41.0 % (39.6-49.0) 09/15/24 04:08 Plt Count 274 thou/uL (152-406) 09/15/24 04:08 PT 12.7 SECONDS (9.4-12.5) H 09/13/24 21:47 INR 1.21 09/13/24 21:47 APTT 29.3 SECONDS (24.3-36.9) 09/13/24 21:47 Sodium 135 mEq/L (136-145) L 09/15/24 04:08 Potassium 4.1 mEq/L (3.5-5.1) 09/15/24 04:08 BUN 12 mg/dL (7-18) 09/15/24 04:08 Creatinine 0.81 mg/dL (0.70-1.30) 09/15/24 04:08 Glucose 79 mg/dL (74-106) 09/15/24 04:08 Phosphorus 2.2 mg/dL (2.5-4.9) L 09/15/24 04:08 Magnesium 2.2 mg/dL (1.6-2.4) 09/15/24 04:08 Total Bilirubin 0.6 mg/dL (0.2-1.0) 09/15/24 04:08 AST 11 U/L (15-37) L 09/15/24 04:08 ALT 20 U/L (16-61) 09/15/24 04:08 Alkaline Phosphatase 70 U/L (45-117) 09/15/24 04:08 Triglycerides 73 mg/dL (<150) 09/13/24 21:47 Cholesterol 175 mg/dL (<200) 09/13/24 21:47 HDL Cholesterol 43 mg/dL (40-60) 09/13/24 21:47 Cholesterol/HDL Ratio 4.07 09/13/24 21:47 Lipase Cancelled 09/14/24 11:04 Home Medications: Amlodipine [Norvasc*] 10 mg PO DAILY 09/14/24 Losartan Potassium 100 mg PO DAILY 09/14/24 Omeprazole 20 mg PO DAILY 09/14/24 atenoloL [Atenolol] 50 mg PO DAILY 09/14/24 Diet: AHA Activity: Fall precautions Followup: Janette Arnold NP [Primary Care Provider] - Time spent managing pt's care (in minutes): 45
[2024-09-15 12:22] VITALS: BP 139/93
--- NOTE | 2024-09-18 12:56 | EKG ---
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
== END 2024-09-15 13:20 | DRG 440 ==
LOC: ER 17:17 → ERHOLD 20:41 → 2ND 09-14 13:40
PROVIDERS: ADMIT Family Medicine; ATTEND Hospitalist
DX: K85.90 Acute pancreatitis without necrosis or infection, unspecified (principal); I10 Essential (primary) hypertension; E78.5 Hyperlipidemia, unspecified; K59.00 Constipation, unspecified; Z90.49 Acquired absence of other specified parts of digestive tract; Z85.46 Personal history of malignant neoplasm of prostate
CPT/HCPCS: 36415; 71045; 80053; 80061; 83605; 83690; 83735; 84100; 84484; 85025; 85610; 85730; 87040; 93005; 96361; 96374; 96375; 99284; J0696; J1650; J2270; J2405; J7030